=== PATIENT | female | born 1945 | race Caucasian/White ===

== ENCOUNTER → 2016-05-05 | Day surgery (SDC) | payer MEDICARE ==
[~2016-05-05] MED LIST: ALPR0.25 PO; AMLO10 PO; AMLO10TA2 PO; ATOR20TA15 PO; BUPIVACAINE HCL PF 0.5% 10 ML VIAL ONE; BUPIVACAINE/EPINEPHRINE 0.5% PF 10 ML VIAL ONE; CHOL1CAP14 PO; CHOL1CAP6; CLINDAMYCIN PHOS 900 MG/6 ML VIAL ONE; GEMF600T PO; GLIM2TAB PO; GLUCTAB PO; GLYB1TAB51 PO; HEPARIN SODIUM - IV 10,000 UNITS/10 ML VIAL ONE; ISOSULFAN BLUE 50 MG/5 ML VIAL SQ ONE; KETOROLAC TROMETHAMINE 30 MG/ML (IVP) VIAL IV PUSH ONE; LACTATED RINGER'S 1000 ML INJ 1,000 ML ONE; LISI-363 PO; LISI-515 PO; METF850T PO; MIDAZOLAM HCL 2 MG/2 ML VIAL ONE; MORPHINE SULFATE 4 MG/ML INJ ONE; NOVOLOGMXP SQ; NS 100 ML (PAB BAG) 100 ML IV ONE; ONDANSETRON HCL 4 MG/2 ML VIAL IV PUSH ONE; PROMETHAZINE INJ 25 MG/ML VIAL ONE; PROPOFOL 100 MG/10 ML INJ IV ONE; SODIUM CHLORIDE 0.9% 20 ML VIAL ONE; VITA10003 PO; VITA100064 PO; oxyCODONE/ACETAMINOPHEN 5 MG/325 MG TAB ONE
--- NOTE | 2016-05-05 16:57 | TN ---
cc: SASHA CAMEJO DATE OF SURGERY 05/05/2016 PRINCIPAL DIAGNOSIS Clinical stage I right breast cancer. PROCEDURE PERFORMED Right breast lumpectomy with oncoplastic reconstruction, right axillary sentinel lymph node biopsy, and left subclavian Qayzgx-C-Pamx placement. SURGEON Sasha Camejo MD ANESTHESIA General via LMA device. INDICATION The patient is a 70-year-old female who presented with a 1.5 cm palpable mass in the 12 o'clock location of the right breast. 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 She now presents for definitive surgical therapy and medical oncology has recommended port placement to facilitate adjuvant chemotherapy. FINDINGS AT SURGERY A large central right breast mass was identified extending from 12 o'clock down to 6 o'clock. It did not appear to involve the overlying central skin but was quite close at the inferior margin requiring excision of some skin near the inframammary crease. Normal left subclavian anatomy was identified. Two sentinel lymph nodes were noted. #1 was 1+ blue with a count of 1443 and #2 had a count of 80 and was not blue. Touch prep was not performed. PROCEDURE PERFORMED After informed consent was obtained and site verification was performed, the patient was brought to the radiology suite where she underwent ghislaine tumor radionuclide injection. She was then brought to the major operating room where she underwent general anesthesia via LMA device. 4 mL of half-strength Lymphazurin were injected in the subareolar right breast and a 5-minute massage was performed. She was given a single dose of IV Clindamycin and sequential compression hose were placed and the left and right chest and right arm were prepped and draped in sterile fashion. She was placed in the Trendelenburg position and the left subclavian vein was identified with some difficulty via percutaneous cannulation. A J-wire was advanced into the central circulation where its position was confirmed with fluoroscopy. Sharp dissection was then performed around the wire until a subcutaneous pocket for the reservoir had been created and the wire had been dissected down to the level of the pectoralis muscle. The catheter was measured out at 30 cm and cut off. A peel-away sheath and introducer were then advanced over the wire into the central circulation. The introducer and wire were then removed and the catheter advanced easily into the central circulation and the peel-away sheath was removed. Fluoroscopy demonstrated good position of the catheter tip at 20 cm and it was cut off at that point and secured to the reservoir. The catheter was noted to flush and aspirate easily. The reservoir was then secured to the subcutaneous tissue using interrupted 2-0 Prolene sutures. It should be noted that the distance between the skin and chest wall was approximately 4 cm and the reservoir was placed above the chest wall in the subcutaneous tissue in order to facilitate percutaneous access. Good hemostasis was noted and the wound was closed using interrupted 3-0 Vicryl subcutaneous sutures and a 4-0 Monocryl subcuticular suture. Steri-Strips and sterile dressings were then applied. The patient was then placed in the supine position and the skin at the inferior margin of the right axillary hairline was then anesthetized with 0.5% Marcaine plain and incised sharply. Sharp and electrocautery dissection were then performed until the level I axilla and clavipectoral fascia were identified. The clavipectoral fascia was divided and the level I axilla was entered. There were no obvious palpable nodes although there was a small node just above the latissimus tendon which was circumferentially dissected free from surrounding structures using the harmonic scalpel. This lymph node had a count of 80 and was not blue. Very close to the chest wall, there was a smaller node which had blue Lymphazurin uptake and this was circumferentially dissected free from surrounding structures using the harmonic scalpel. This lymph node had a count of 1443 and was 1+ blue. Good hemostasis was noted and the axillary wound was closed using interrupted 3-0 Vicryl subcutaneous sutures and 4-0 Monocryl subcuticular suture. Attention was then turned to the right breast where a central mass was identified. A 12 o'clock periareolar incision was anesthetized and incised sharply. Sharp and electrocautery dissection was then performed circumferentially around the mass until it had been mobilized completely into the wound. The inferior margin of the mass was close to the inframammary crease and some of the skin at that level was sacrificed in order to obtain in good inferior margin. The mass was oriented with one short suture anteriorly, two sutures superiorly, and one long suture laterally. Because the mass did appear close to the anterior margin, this was sharply re-excised with a stitch on the new margin and this was sent as a separate permanent specimen. The inferior margin was also re-excised using electrocautery and this was sent as a separate permanent specimen. Hemostasis was easily obtained with electrocautery and oncoplastic reconstruction was then performed by mobilizing the breast tissue at the level of the subcutaneous fat circumferentially around the defect and the breast tissue was mobilized circumferentially at the level of the pectoralis fascia. It was reapproximated with interrupted 3-0 Vicryl sutures and 3-0 Vicryls were then used to reapproximate the subctaneous tissue. The skin defect at the inframammary crease was also closed using interrupted 3-0 Vicryl subcutaneous sutures and 4-0 Monocryl subcuticular suture. Steri-Strips and sterile dressings were then applied. The patient tolerated the procedure well with an estimated blood loss of 50 mL and she was extubated in the operating room and brought to recovery room in good condition. All sponge and needle counts were correct at the conclusion of the case. MD PETER Hand/ASMITA /4:00 PM /4:40 PM MTDNasreen
== END | disposition home or self-care (01) ==
LOC: ESDC 09:53
PROVIDERS: ATTEND Surgery
DX: C50.911 Malignant neoplasm of unspecified site of right female breast (principal)
CPT/HCPCS: 00400; 00532; 01610; 19303; 36561; 38525; 38792; 76000; 88305; 88307; C1788; J1644; J1885; J2250; J2270; J2405; J2550; J3010; J7120; Q9968

== ENCOUNTER → 2016-06-04 | Day surgery (SDC) | payer MEDICARE ==
[~2016-06-04] VITALS: Ht 160 cm; Wt 89.9 kg
[~2016-06-04] MED LIST changes: +*morphine SULFATE 8 MG/ML PERIprocedure ONLY ONE; +APREPITANT 40 MG CAP ONE; -BUPIVACAINE HCL PF 0.5% 10 ML VIAL ONE; -BUPIVACAINE/EPINEPHRINE 0.5% PF 10 ML VIAL ONE; +BUPIVACAINE/EPINEPHRINE 0.5% PF 30 ML VIAL ONE; +CHLORHEXIDINE GLUCONATE 2 % 1 PACK (2 CLOTHS) TOPICAL PRN; +CLINDAMYCIN 900/NS 100 ML IV SCH; -CLINDAMYCIN PHOS 900 MG/6 ML VIAL ONE; +GENTAMICIN SULFATE 80 MG/2 ML VIAL ONE; -HEPARIN SODIUM - IV 10,000 UNITS/10 ML VIAL ONE; +INSULIN HUMAN REGULAR 1,000 UNITS/10 ML VIAL SQ PRN; -ISOSULFAN BLUE 50 MG/5 ML VIAL SQ ONE; -KETOROLAC TROMETHAMINE 30 MG/ML (IVP) VIAL IV PUSH ONE; +KETOROLAC TROMETHAMINE 30 MG/ML (IVP) VIAL ONE; -LACTATED RINGER'S 1000 ML INJ 1,000 ML ONE; +LACTATED RINGER'S 1000 ML IV PRN; +METOPROLOL TARTRATE 25 MG TAB PO PRN; -MIDAZOLAM HCL 2 MG/2 ML VIAL ONE; -MORPHINE SULFATE 4 MG/ML INJ ONE; -NS 100 ML (PAB BAG) 100 ML IV ONE; +ONDANSETRON HCL 4 MG/2 ML VIAL IV PUSH SCH; +POVIDONE IODINE 5% (ANTISEPSIS KIT) 4 APPLICATIONS EACH NARE PRN; -PROMETHAZINE INJ 25 MG/ML VIAL ONE; -PROPOFOL 100 MG/10 ML INJ IV ONE; +PROPOFOL 200 MG/20 ML AMP IV ONE; +SODIUM CHLORID 0.9% 500 ML IV PRN; -SODIUM CHLORIDE 0.9% 20 ML VIAL ONE; +SODIUM CHLORIDE 0.9% INJ 100 ML ONE; +ePHEDrine/NS 25 MG/5 ML SYR IV ONE; +fentaNYL CITRATE 250 MCG/5 ML AMP ONE; -oxyCODONE/ACETAMINOPHEN 5 MG/325 MG TAB ONE
[2016-06-04 08:22] VITALS: BP 160/76; PULSE 104; RESP 18; TEMP 98.3; O2SAT 98
[2016-06-04 08:38] LABS: AUTOMATED NEUTROPHIL # 3.7 TH/MM3 (1.8-7.7); BASOPHIL # 0.1 TH/MM3 (0-0.2); BASOPHIL % 0.9 % (0.0-2.0); EOSINOPHIL # 0.3 TH/MM3 (0-0.4); EOSINOPHIL % 4.1 % (0.0-4.0); HEMATOCRIT 31.1 % (35.0-46.0); HEMO FLAGS DIFF FINAL; LYMPHOCYTE # 1.9 TH/MM3 (1.0-4.8); MEAN CELL VOLUME 86.6 FL (80.0-100.0); MEAN CORPUSCULAR HEMOGLOBIN 29.8 PG (27.0-34.0); MEAN CORPUSCULAR HGB CONC 34.5 % (32.0-36.0); MONO % 9.8 % (0.0-8.0); NEUT % 56.2 % (16.0-70.0); PLATELET COUNT 210 TH/MM3 (150-450); RED BLOOD COUNT 3.59 MIL/MM3 (4.00-5.30); RED CELL DISTRIBUTION WIDTH 15.5 % (11.6-17.2); WHITE BLOOD COUNT 6.7 TH/MM3 (4.0-11.0)
[2016-06-04 12:20] VITALS: BP 142/74; PULSE 92; RESP 20; TEMP 98; O2SAT 94
--- NOTE | 2016-06-07 09:42 | MP ---
cc: SASHA CAMEJO M.D. DATA OF DICTATION 06/04/2016 DATE OF SURGERY 06/04/2016 PRINCIPAL DIAGNOSIS Infected right breast seroma status post lumpectomy. POSTOPERATIVE DIAGNOSIS Infected right breast seroma status post lumpectomy. PROCEDURE PERFORMED Incision and drainage of infected right breast seroma. ATTENDING PHYSICIAN Sasha Camejo MD HISTORY OF PRESENT ILLNESS The patient is a 70-year-old morbidly obese diabetic who had a poorly differentiated metaplastic breast cancer requiring lumpectomy and sentinel lymph node biopsy on April 30. Final tumor size was 6.5 cm and she is scheduled to begin adjuvant chemotherapy. Approximately 2-1/2 weeks postoperatively, she developed sudden onset of purulent drainage from the lateral aspect of her lumpectomy wound which has been managed with oral antibiotics and wound packing. However, she continues to have copious drainage and pain and operative drainage was recommended. FINDINGS AT THE TIME OF SURGERY Mild fat necrosis with purulent fluid was identified. PROCEDURE PERFORMED After informed consent was obtained and site verification was performed, the patient was brought to the major operating room where she underwent IV sedation. She was given a single dose of IV clindamycin and sequential compression hose were placed. The right breast was prepped and draped in sterile fashion. The periareolar incision was anesthetized with 0.5% Marcaine and incised sharply. The lumpectomy cavity was immediately identified and approximately 100 cc of purulent drainage was evacuated. Copious irrigation and suctioning as well as mechanical debridement of the wound base was performed. There was mild fat necrosis, but no evidence of a deep space infection. The wound was repacked and closed using interrupted 3-0 Vicryl subcutaneous sutures and interrupted 3-0 nylon horizontal mattress sutures. The patient tolerated the procedure well and was brought to the recovery room in good condition. All sponge and needle counts were correct at the conclusion of the case. MD PETER Hand/LUKE /10:39 AM /9:37 AM
== END | disposition home or self-care (01) ==
LOC: HSDC 07:29
PROVIDERS: ATTEND Surgery
DX: L76.34 Postprocedural seroma of skin and subcutaneous tissue following other procedure (principal); C50.911 Malignant neoplasm of unspecified site of right female breast; E11.9 Type 2 diabetes mellitus without complications; E66.01 Morbid (severe) obesity due to excess calories; Z68.35 Body mass index [BMI] 35.0-35.9, adult
CPT/HCPCS: 00400; 10140; 85025; J1885; J2270; J2405; J3010; J7120; J8501; J1580

== ENCOUNTER 2016-08-05 12:52 | Day surgery (SDC) | payer MEDICARE ==
[~2016-08-05 12:52] MED LIST changes: -*morphine SULFATE 8 MG/ML PERIprocedure ONLY ONE; -ALPR0.25 PO; -AMLO10 PO; -APREPITANT 40 MG CAP ONE; -BUPIVACAINE/EPINEPHRINE 0.5% PF 30 ML VIAL ONE; -CHLORHEXIDINE GLUCONATE 2 % 1 PACK (2 CLOTHS) TOPICAL PRN; -CHOL1CAP14 PO; -CHOL1CAP6; -CLINDAMYCIN 900/NS 100 ML IV SCH; -GENTAMICIN SULFATE 80 MG/2 ML VIAL ONE; -GLUCTAB PO; -GLYB1TAB51 PO; -INSULIN HUMAN REGULAR 1,000 UNITS/10 ML VIAL SQ PRN; -KETOROLAC TROMETHAMINE 30 MG/ML (IVP) VIAL ONE; -LACTATED RINGER'S 1000 ML IV PRN; -LISI-363 PO; -METOPROLOL TARTRATE 25 MG TAB PO PRN; -NOVOLOGMXP SQ; -ONDANSETRON HCL 4 MG/2 ML VIAL IV PUSH ONE; -ONDANSETRON HCL 4 MG/2 ML VIAL IV PUSH SCH; -POVIDONE IODINE 5% (ANTISEPSIS KIT) 4 APPLICATIONS EACH NARE PRN; -PROPOFOL 200 MG/20 ML AMP IV ONE; -SODIUM CHLORID 0.9% 500 ML IV PRN; -SODIUM CHLORIDE 0.9% INJ 100 ML ONE; -VITA100064 PO; -ePHEDrine/NS 25 MG/5 ML SYR IV ONE; -fentaNYL CITRATE 250 MCG/5 ML AMP ONE
[2016-08-05 13:19] VITALS: BP 203/90; PULSE 113; RESP 20; TEMP 98.4; O2SAT 96
[2016-08-05] MEDS ORDERED: CHOL1CAP14 PO (13:53)
[2016-08-05] MEDS ORDERED: ALPR0.25 PO (13:54)
--- NOTE | 2016-08-05 14:37 | PD.RAD ---
Post Procedure Progress Note Pre Procedure Diagnosis: (1) Port catheter in place Post Procedure Diagnosis: (1) Port catheter in place Procedure Date: Aug 05, 2016 Supervising Radiologist: Duane Lira Proceduralist/Assist: RT Tiffani(R) Anesthesia: Other Plan of Activity Patient to Unit: ROPU Patient Condition: Good See PACS Report for procedural detail/treatment Duane Lira MD Aug 05, 2016 14:37
--- NOTE | 2016-08-05 16:01 | RADRPT ---
EXAM DATE/TIME: 08/05/2016 14:14 [facility] COMPARISON: No previous studies available for comparison. INDICATIONS : Patient presents with breast cancer in need of port evaluation due to non functioning port. MEDICAL HISTORY : HTN GERD DM R breast cancer Arthritis Hypercholesterolemia SURGICAL HISTORY : Cataract sx L port placement Right breast lumpectomy Colonascopy ENCOUNTER: Initial ACUITY: 3 months PAIN SCORE: 0/10 LOCATION: N/A FLUORO TIME: 0.1 minutes IMAGE SERIES: 0 TECH NOTE: Port patency evaluation was unsuccessful due to port access being clogged off.SHO CHAUDHARI MR#:[id number] Exam Dt/Desc: August 05, 2016CENT COMPA ACCESS DEV PAT W/SVC PROCEDURE : 1. fluoroscopic evaluation and attempted injection of port The risks, benefits and alternatives to the procedure were explained and verbal and written consent w as obtained. The patient was placed supine. The port was prepped in sterile fashion. Full sterile t echnique was used, including cap, mask, sterile gloves and gown, and a large sterile sheet. Hand hyg iene and 2% chlorhexidine prep was utilized per protocol for cutaneous antisepsis with appropriate dr y time for site. Fluoroscopic evaluation of the chest demonstrates a left subclavian port with redundant tubing in the chest wall and catheter tip in the central brachiocephalic vein. Despite multiple attempts with vary ing syringes and multiple manipulations, the port could not be flushed or aspirated. CONCLUSION: 1. Left subclavian [id number]-c-[id number] catheter tip in the central left brachiocephalic vein. The port appe ars to be completely occluded with multiple failed attempts at clearance. Findings were personally discussed with Dr. Mary at the conclusion of the procedure. Plan is to e xplant the existing port and place a new internal jugular port. Duane Lira MD on August 05, 2016 at 15:56 Board Certified Radiologist. This report was verified electronically.
== END 2016-08-05 15:30 | disposition home or self-care (01) ==
LOC: HROP 12:52 → HRIP 12:53 → HROP 15:30
PROVIDERS: ATTEND Internal Medicine Hematology & Oncology
DX: T82.898A Other specified complication of vascular prosthetic devices, implants and grafts, initial encounter (principal); C50.911 Malignant neoplasm of unspecified site of right female breast; I10 Essential (primary) hypertension; K21.9 Gastro-esophageal reflux disease without esophagitis; E11.9 Type 2 diabetes mellitus without complications; M19.90 Unspecified osteoarthritis, unspecified site; E78.00 Pure hypercholesterolemia, unspecified; Y83.1 Surgical operation with implant of artificial internal device as the cause of abnormal reaction of the patient, or of later complication, without mention of misadventure at the time of the procedure; Z88.0 Allergy status to penicillin; Z88.2 Allergy status to sulfonamides; Z88.5 Allergy status to narcotic agent

== ENCOUNTER 2016-08-09 06:18 | Day surgery (SDC) | payer MEDICARE ==
[~2016-08-09] VITALS: Ht 154.9 cm; Wt 89.1 kg
[~2016-08-09 06:18] MED LIST changes: +ALPR0.25 PO; +CHOL1CAP14 PO
[2016-08-09 06:47] VITALS: BP 195/91; PULSE 103; RESP 20; TEMP 98.3; O2SAT 96
[2016-08-09] MEDS ORDERED: VANCOMYCIN 1000 MG/NS 250 ML - implanted port/tunneled catheter IV SCH ×2 (07:00)
[2016-08-09] MEDS ORDERED: POVIDONE IODINE 5% (ANTISEPSIS KIT) 4 APPLICATIONS EACH NARE SCH (07:00)
[2016-08-09] MEDS ORDERED: SODIUM CHLORIDE 0.9% 1000 ML IV SCH (07:00)
[2016-08-09] MEDS ORDERED: CHLORHEXIDINE GLUCONATE 2 % 1 PACK (2 CLOTHS) TOPICAL SCH (07:00)
[2016-08-09 07:49] LABS: HEMATOCRIT 27.3 % (35.0-46.0); MEAN CELL VOLUME 87.8 FL (80.0-100.0); MEAN CORPUSCULAR HGB CONC 35.3 % (32.0-36.0); PLATELET COUNT 172 TH/MM3 (150-450); RED BLOOD COUNT 3.11 MIL/MM3 (4.00-5.30)
[2016-08-09 07:50] LABS: HEMO FLAGS AUTO DIFF
[2016-08-09 08:05] LABS: APTT (PATIENT) 25.2 SEC (24.3-30.1); PROTHROMBIN TIME - PATIENT 11.4 SEC (9.8-11.6)
[2016-08-09] MEDS ORDERED: fentaNYL CITRATE 250 MCG/5 ML AMP ONE ×2 (08:11→09:08)
[2016-08-09] MEDS ORDERED: MIDAZOLAM HCL 5 MG/5 ML VIAL ONE ×2 (08:11→09:08)
[2016-08-09] MEDS ORDERED: LIDOCAINE 1%/EPINEPHrine 1:100,000 SOLN 30 ML VIAL ONE (08:20)
[2016-08-09 08:42] LABS: BASOPHILS 2 % (0-2); EOSINOPHILS 2 % (0-4); POLYS (SEG NEUTROPHILS) 11 % (16-70); WBC DIFF SAMPLE 100
[2016-08-09 08:44] LABS: NEUTROPHIL # MANUAL DIFF 0.1 TH/MM3 (1.8-7.7)
[2016-08-09 08:45] LABS: OVALOCYTES 1+ (NORMAL)
[2016-08-09 08:48] LABS: PLATELET ESTIMATE SMEAR NORMAL (NORMAL); PLATELET MORPHOLOGY ENLARGED (NORMAL); POLYCHROMASIA 2.3 % (0.0-1.9)
[2016-08-09 08:49] LABS: SCAN/DIFF FINAL DIFF MANUAL
[2016-08-09 09:50] VITALS: BP 187/80; PULSE 98; RESP 18; TEMP 98.2; O2SAT 92
[2016-08-09 10:05] VITALS: BP 184/82; PULSE 95; RESP 17; O2SAT 95
--- NOTE | 2016-08-09 10:07 | PD.RAD ---
Post Procedure Progress Note Pre Procedure Diagnosis: (1) Port catheter in place (2) Breast CA Post Procedure Diagnosis: (1) Port catheter in place (2) Breast CA Procedure Date: Aug 09, 2016 Supervising Radiologist: Duane Lira Proceduralist/Assist: Aylin De Paz, RT(R)(CV), Bee Tony RT(R) Estimated blood loss: <5 ml Anesthesia: Conscious Sedation Plan of Activity Patient to Unit: ROPU Patient Condition: Good Additional Comments: Removed left subclavian nonfunctioning port. Placed new IJ port. See PACS Report for procedural detail/treatment Duane Lira MD Aug 09, 2016 10:07
[2016-08-09] MEDS ORDERED: SODIUM CHLORIDE 0.9% FLUSH 10 ML FLUSH IVF PRN (10:15)
--- NOTE | 2016-08-09 10:19 | RADRPT ---
EXAM DATE/TIME: 08/09/2016 08:35 [facility] COMPARISON: No previous studies available for comparison. INDICATIONS : Patient with history of right breast cancer in need of Bbrzh-i-Rnqa removal and replacement. MEDICAL HISTORY : HTN, HLD, Anemia, GERD, Osteoarthritis, Diabetes, Mastitis, Chemotherapy SURGICAL HISTORY : Right breast mass biopsy, Right breast lumpectomy and sentinel lymph node sampling, Port placement, C olonoscopy ENCOUNTER: Subsequent ACUITY: 4-6 months PAIN SCORE: 0/10 FLUORO TIME: 1 minutes IMAGE SERIES: 0 SEDATION TIME: 45 minutes ACCESS: Left internal jugular vein SEDATION: 1.) 6 mg midazolam (Versed) IV 2.) 300 mcg fentanyl (Sublimaze) IV Prophylactic antibiotics were administered with appropriate pre-procedure timing. Vancomycin within 2 hours of procedure, Ancef (or alternative) within 1 hour of procedure. DEVICE: 1. 8 single lumen Bard Vaccess Port PROCEDURE : 1. Removal of surgically placed left subclavian Jsptee-j-Xjuk 2. Conscious sedation with continuous EKG and Oximetry monitoring. 3. Ultrasound of vascular access 4. Fluoroscopic guidance 5. Placement of new left internal jugular Vaccess Sfeaji-d-Bsfv The risks, benefits and alternatives to the procedure were explained and verbal and written consent w as obtained. The site was prepped in sterile fashion. Full sterile technique was used, including ca p, mask, sterile gloves and gown and a large sterile sheet. Hand hygiene and 2% chlorhexidine prep w as utilized per protocol for cutaneous antisepsis with appropriate dry time for site. The skin and s ubcutaneous tissues were infiltrated with local anesthetic solution. Small incision was made overlying the prior left subclavian port pocket. The pocket was then bluntly dissected and the existing port and attached tubing were removed. Both were inspected and noted to be intact. The pocket was then irrigated with copious saline. Slightly more superficial region along th e same pocket was then bluntly dissected away. The deep tissues of the prior pocket were closed with 3-0 suture. Ultrasound examination of the left internal jugular vein demonstrated the vein to be open . Single image was obtained and placed PACS archive. Micropuncture needle was advanced into the left internal jugular vein under direct ultrasound guidance. This was subtotally exchanged for a 3-4 dilat or. Inner dilator was then removed and the wire was advanced into the IVC under fluoroscopic guidance . A Bard Vaccess port was then sutured into the pocket with 2-0 Prolene suture. Attached tubing was t hen tunneled from the port pocket to be the venotomy site. Catheter was then advanced through a peel- away sheath to just beyond the atriocaval junction and the peel-away sheath was then removed. Port de monstrated appropriate function and was therefore locked with appropriate volume and strength of hepa rinized solution. The port incision was subsequently closed with 3-0 and 4-0 suture and Dermabond. Conscious sedation was performed with the prescribed dosages and duration as above in the presence of an independent trained radiology nurse to assist in the monitoring of the patient. EKG and oximetry remained stable throughout the procedure. CONCLUSION: 1. Technically successful removal of nonfunctioning left subclavian [id number]-g-Ucrk. 2. Technically successful placement of a new left intrajugular port, as above. Duane Lira MD on August 09, 2016 at 10:08 Board Certified Radiologist. This report was verified electronically.
[2016-08-09 10:35] VITALS: BP 158/78; PULSE 90; RESP 18; O2SAT 94
[2016-08-09 11:05] VITALS: BP 190/88; PULSE 85; RESP 19; O2SAT 92
[2016-08-09] MEDS ORDERED: ONDANSETRON HCL 4 MG/2 ML VIAL ONE (11:28)
[2016-08-09 12:00] VITALS: BP 151/78; PULSE 89; RESP 18; O2SAT 92
== END 2016-08-09 12:15 | disposition home or self-care (01) ==
LOC: HRIP 06:18 → HROP 06:18
PROVIDERS: ATTEND Internal Medicine Hematology & Oncology
DX: T82.598A Other mechanical complication of other cardiac and vascular devices and implants, initial encounter (principal); C50.919 Malignant neoplasm of unspecified site of unspecified female breast; I10 Essential (primary) hypertension; E78.5 Hyperlipidemia, unspecified; E11.9 Type 2 diabetes mellitus without complications; K21.9 Gastro-esophageal reflux disease without esophagitis; M19.90 Unspecified osteoarthritis, unspecified site; Y83.1 Surgical operation with implant of artificial internal device as the cause of abnormal reaction of the patient, or of later complication, without mention of misadventure at the time of the procedure
CPT/HCPCS: 36561; 36590; 85007; 85027; 85610; 85730; C1788; J1642; J2250; J2405; J3010; J3370; J7030; J7050; 36582; 76937; 77001; 99152; 99153

== ENCOUNTER 2016-08-29 15:51 | Inpatient (IN) | payer MEDICARE ==
[~2016-08-29] VITALS: Ht 157.5 cm; Wt 86.2 kg
[~2016-08-29 15:51] MED LIST changes: -VITA10003 PO
[2016-08-29 15:53] VITALS: BP 183/80; PULSE 132; RESP 20; TEMP 98.8; O2SAT 97
[2016-08-29 16:29] VITALS: BP 137/65; PULSE 111; PULSE 98; RESP 17; O2SAT 97
[2016-08-29 17:22] LABS: BASOPHIL % 2.3 % (0.0-2.0); EOSINOPHIL % 0.5 % (0.0-4.0); HEMATOCRIT 30.3 % (35.0-46.0); LYMPH % 29.5 % (9.0-44.0); LYMPHOCYTE # 0.3 TH/MM3 (1.0-4.8); MEAN CORPUSCULAR HEMOGLOBIN 30.3 PG (27.0-34.0); MEAN CORPUSCULAR HGB CONC 34.8 % (32.0-36.0); MONO % 31.4 % (0.0-8.0); NEUT % 36.3 % (16.0-70.0); PLATELET COUNT 183 TH/MM3 (150-450); RED BLOOD COUNT 3.49 MIL/MM3 (4.00-5.30); RED CELL DISTRIBUTION WIDTH 15.6 % (11.6-17.2)
[2016-08-29 17:27] LABS: HEMO FLAGS AUTO DIFF
[2016-08-29 17:32] LABS: AUTOMATED NEUTROPHIL # 0.4 TH/MM3 (1.8-7.7)
[2016-08-29 17:35] LABS: ANION GAP 11 MEQ/L (5-15); AST (GOT) 21 U/L (15-37); BICARBONATE 20.5 MEQ/L (21.0-32.0); BLOOD UREA NITROGEN 20 MG/DL (7-18); CHLORIDE 106 MEQ/L (98-107); GLOMERULAR FILTRATION RATE 68 ML/MIN (>89); POTASSIUM 3.9 MEQ/L (3.5-5.1); SODIUM (NA) 137 MEQ/L (136-145)
[2016-08-29 17:36] LABS: ALT (GPT) 32 U/L (10-53)
[2016-08-29 17:39] LABS: ALKALINE PHOSPHATASE 108 U/L (45-117); TOTAL BILIRUBIN ADULT 0.7 MG/DL (0.2-1.0)
[2016-08-29 17:46] LABS: CREATINE KINASE 38 U/L (26-192)
[2016-08-29 17:59] LABS: PLATELET ESTIMATE SMEAR NORMAL (NORMAL); PLATELET MORPHOLOGY NORMAL (NORMAL); SCAN/DIFF AUTO DIFF CONFIRMED
--- NOTE | 2016-08-29 18:27 | PD ---
HPI Chief Complaint: Pain: Acute or Chronic Time Seen by Provider: 16:16 Travel History International Travel<30 days: No Contact w/Intl Traveler<30days: No Traveled to known affect area: No History of Present Illness HPI This is a 71-year-old female who has a history of stage IIB breast cancer who presents to the emergency department having received chemotherapy on Tuesday and reporting weakness. She says that ever since she received chemotherapy she hasn't been able to walk. She's been very weak and she hasn't been able to move her legs much and she can't even get out of bed without help, constant, severe. She lives alone. She says she has been tolerating this chemotherapy very well. She already had a complication having to be treated for mastitis in the setting of chemotherapy. She follows with Dr. Benavides. She denies any back pain. She has had some tingling in her hands on both sides. She denies any fevers or chills. PFSH Past Medical History Arthritis: Yes Cancer: Yes (RIGHT BREAST W/ CHEMO) Cardiovascular Problems: Yes High Cholesterol: Yes Chemotherapy: Yes Diabetes: Yes Patient Takes Glucophage: Yes Endocrine: Yes Gastrointestinal Disorders: Yes (GERD) Genitourinary: No Hepatitis: No Hiatal Hernia: No Hypertension: Yes Immune Disorder: No Medical other: Yes (VIT D DEFICIENCY, CELLULITIS) Musculoskeletal: Yes (OSTEOPENIA, OA) Neurologic: No Psychiatric: Yes (ANXIETY) Reproductive: No Respiratory: Yes (URI) Immunizations Current: Yes Thyroid Disease: No Past Surgical History Abdominal Surgery: Yes (CHOLY) AICD: No Body Medical Devices: PORT LEFT CHEST Cardiac Surgery: No Cholecystectomy: Yes Ear Surgery: No Endocrine Surgery: No Eye Surgery: Yes (L CATARACT) Genitourinary Surgery: No Gynecologic Surgery: No Joint Replacement: No Oral Surgery: Yes (T&A) Pacemaker: No Thoracic Surgery: Yes (PORT PLACEMENT twice, R BREAST LUMPECTOMY 05/05/16) Tonsillectomy: Yes (and adenoids) Social History Alcohol Use: No Tobacco Use: No Substance Use: No Allergies-Medications (Allergen,Severity, Reaction): Coded Allergies: Codeine (Verified Allergy, Severe, NAUSEA AND VOMITITNG, 08/29/16) Penicillin (Verified Allergy, Severe, HIVES, PROBLEMS BREATHING, 08/29/16) Sulfa (Verified Allergy, Severe, NAUSEA AND VOMITING, 08/29/16) Reported Meds & Prescriptions Reported Meds & Active Scripts Active Reported Alprazolam 0.25 Mg Tab 0.25 Mg PO Q4H PRN D3 Maximum Strength (Cholecalciferol) 5,000 Unit Cap Units PO EVERY OTHER DAY Metformin (Metformin HCl) 850 Mg Tab 850 Mg PO BIDPC With meals Lisinopril 20 Mg Tab 20 Mg PO DAILY Glimepiride 2 Mg Tab 2 Mg PO BIDAC Gemfibrozil 600 Mg Tab 600 Mg PO BIDAC Take 30 minutes prior to breakfast and dinner. Atorvastatin (Atorvastatin Calcium) 20 Mg Tab 20 Mg PO HS Amlodipine (Amlodipine Besylate) 10 Mg Tab 10 Mg PO DAILY Review of Systems Except as stated in HPI: all other systems reviewed are Neg Physical Exam Narrative GENERAL:Well appearing, no acute distress SKIN: Focused skin assessment warm and dry. HEAD: Atraumatic. Normocephalic. EYES: Pupils equal and round. No injection or drainage. ENT: Dry mucous membranes. NECK: Trachea midline. CARDIOVASCULAR: Tachycardic. No murmur appreciated. RESPIRATORY: Clear to auscultation. Breath sounds equal bilaterally. GASTROINTESTINAL: Abdomen soft, non-tender, nondistended. MUSCULOSKELETAL: No obvious deformities. NEUROLOGICAL: Awake and alert. No obvious cranial nerve deficits. 4 out of 5 strength in the left lower extremity, 4+ out of 5 strength in the right lower extremity, no clonus, downward Babinski, weakness appears to affect both proximal and distal muscles. PSYCHIATRIC: Appropriate mood and affect; insight and judgment normal. Data Data Last Documented VS Vital Signs Date Time Temp Pulse Resp B/P Pulse Ox O2 Delivery O2 Flow Rate FiO2 08/29/16 16:29 98 17 137/65 97 Room Air 08/29/16 15:53 98.8 Orders Complete Blood Count With Diff (08/29/16 16:34) Comprehensive Metabolic Panel (08/29/16 16:34) Blood Culture (08/29/16 16:34) Lactic Acid (08/29/16 16:34) Creatine Kinase (Cpk) (08/29/16 16:34) ^ Insert Iv (08/29/16 16:34) Admit Order (Ed Use Only) (08/29/16 18:05) Labs Laboratory Tests Test 08/29/16 16:52 White Blood Count 1.0 TH/MM3 Red Blood Count 3.49 MIL/MM3 Hemoglobin 10.6 GM/DL Hematocrit 30.3 % Mean Corpuscular Volume 87.0 FL Mean Corpuscular Hemoglobin 30.3 PG Mean Corpuscular Hemoglobin 34.8 % Concent Red Cell Distribution Width 15.6 % Platelet Count 183 TH/MM3 Mean Platelet Volume 9.7 FL Neutrophils (%) (Auto) 36.3 % Lymphocytes (%) (Auto) 29.5 % Monocytes (%) (Auto) 31.4 % Eosinophils (%) (Auto) 0.5 % Basophils (%) (Auto) 2.3 % Neutrophils # (Auto) 0.4 TH/MM3 Lymphocytes # (Auto) 0.3 TH/MM3 Monocytes # (Auto) 0.3 TH/MM3 Eosinophils # (Auto) 0.0 TH/MM3 Basophils # (Auto) 0.0 TH/MM3 CBC Comment AUTO DIFF Differential Comment AUTO DIFF CONFIRMED Platelet Estimate NORMAL Platelet Morphology Comment NORMAL Sodium Level 137 MEQ/L Potassium Level 3.9 MEQ/L Chloride Level 106 MEQ/L Carbon Dioxide Level 20.5 MEQ/L Anion Gap 11 MEQ/L Blood Urea Nitrogen 20 MG/DL Creatinine 0.83 MG/DL Estimat Glomerular Filtration 68 ML/MIN Rate Random Glucose 153 MG/DL Lactic Acid Level 1.2 mmol/L Calcium Level 9.6 MG/DL Total Bilirubin 0.7 MG/DL Aspartate Amino Transf 21 U/L (AST/SGOT) Alanine Aminotransferase 32 U/L (ALT/SGPT) Alkaline Phosphatase 108 U/L Total Creatine Kinase 38 U/L Total Protein 7.8 GM/DL Albumin 4.4 GM/DL [facility] Medical Decision Making Medical Screen Exam Complete: Yes Emergency Medical Condition: Yes Medical Record Reviewed: Yes (patient has been receiving Taxotere and Cytoxan with Dr. Benavides) Interpretation(s) Neutropenic Electrolytes are reassuring Lactic acid is 1.2 CK is normal Differential Diagnosis Infection, metastasis, neuropathy, chemotherapy side effect, Eaton-Lambert syndrome Narrative Course This is a 71-year-old female who presents to the emergency department with weakness in her lower extremities which has been going on for about 5 days. She is unable to get out of bed without help. She lives alone. She is subjectively weak on exam. She was placed on a monitor and an IV was established. She was tachycardic. I was cautious with IV hydration given her history of reduced ejection fraction. I spoke to Dr. Escobedo who was telephonic nurse case manager for Dr. Benavides. He agreed that MRI is warranted to evaluate for possible metastases causing the patient's weakness. Plan for MRI of the brain, thoracic and lumbar spine. Patient also will likely require physical therapy evaluation. Physician Communication Physician Communication Discussed with Dr. Escobedo and Dr. Dudley Diagnosis Primary Impression: Weakness Admitting Information Admitting Physician Requests: Admit Jeniffer Jacobo MD Aug 29, 2016 18:27
[2016-08-29] MEDS ORDERED: SODIUM CHLORID 0.9% 500 ML INJ 500 ML IV ONE (18:45)
[2016-08-29 18:50] VITALS: TEMP 100.4
[2016-08-29] MEDS ORDERED: GLUCAGON 1 MG/ML VIAL OTHER PRN (19:00)
[2016-08-29] MEDS ORDERED: DEXTROSE 50% IN WATER 50 ML VIAL(D50) IV PRN (19:00)
[2016-08-29 19:34] LABS: BACTERIA, URINE MOD /hpf; BLOOD, URINE SMALL (NEG); COMMENT (UR) CULTURE INDICATED; CULTURE IF INDICATED CULTURE INDICATED; GLUCOSE,URINE NEG (NEG); KETONE, URINE NEG (NEG); NITRITE,URINE NEG (NEG); PH, URINE 5.5 (5.0-8.5); SQUAMOUS EPITHELIAL CELL URINE 1 /hpf (0-5); TRANSITIONAL EPI CELLS, URINE 1 /hpf; URINE COLOR YELLOW (YELLW/STRAW)
--- NOTE | 2016-08-29 19:53 | HHI.HP ---
HPI Service [facility] Hospitalists Primary Care Physician Praveena Wilks MD Admission Diagnosis weakness Chief Complaint: weak Travel History International Travel<30 Days: No Contact w/Intl Traveler <30 Da: No Traveled to Known Affected Are: No History of Present Illness Pt is 71 yo diagnosed with right breast ca in February. She underwent lumpectomy and l.n. were negative in April. She had a port placed during surgery. She developed an infected seroma of surgical site requiring incision/drainage in May. About 3 weeks ago the port was removed due to nonfunction and IR placed a new port. She underwent her second chemo treatment docetaxel/cyclophosphamide last weak on Tuesday and since this past Tuesday or a week ago..has been very weak. Pt describes being essentially bedridden. She says it has been hard to maneuver her legs to edge of bed and has been unable to walk. she described some chills but no fever at home. diarrhea now x 2 days but no vomiting or problems eating. no abdomen pain and no dysuria. Review of Systems Other chills lower ext weakness inability to ambulate Past Family Social History Past Medical History breast ca right breast lumpectomy infected seroma breast htn right wrist fx's and surgery port placement. x 2 dm htn hyperlipidemia cardiomyopathy 40-45% per records Reported Medications Alprazolam 0.25 Mg Tab 0.25 Mg PO Q4H PRN D3 Maximum Strength (Cholecalciferol) 5,000 Unit Cap Units PO EVERY OTHER DAY Metformin (Metformin HCl) 850 Mg Tab 850 Mg PO BIDPC With meals Lisinopril 20 Mg Tab 20 Mg PO DAILY Glimepiride 2 Mg Tab 2 Mg PO BIDAC Gemfibrozil 600 Mg Tab 600 Mg PO BIDAC Take 30 minutes prior to breakfast and dinner. Atorvastatin (Atorvastatin Calcium) 20 Mg Tab 20 Mg PO HS Amlodipine (Amlodipine Besylate) 10 Mg Tab 10 Mg PO DAILY Allergies: Coded Allergies: Codeine (Verified Allergy, Severe, NAUSEA AND VOMITITNG, 08/29/16) Penicillin (Verified Allergy, Severe, HIVES, PROBLEMS BREATHING, 08/29/16) Sulfa (Verified Allergy, Severe, NAUSEA AND VOMITING, 08/29/16) Family History nc Social History no etoh/tob Physical Exam Vital Signs nad heart reg lung cta abd s/nt/nabs ext no edema lying in bed...able to dorsi/plantarflex at ankle, hip and knee flexion/extention intact no clonus. no tenderness over lumbar spine. no redness or tenderness over left chest port Vital Signs Date Time Temp Pulse Resp B/P Pulse Ox O2 Delivery O2 Flow Rate FiO2 08/29/16 18:50 100.4 08/29/16 16:29 98 17 137/65 97 Room Air 08/29/16 15:53 98.8 132 20 183/80 97 Room Air Laboratory Laboratory Tests Test 08/29/16 08/29/16 16:52 18:50 White Blood Count 1.0 Red Blood Count 3.49 Hemoglobin 10.6 Hematocrit 30.3 Mean Corpuscular Volume 87.0 Mean Corpuscular Hemoglobin 30.3 Mean Corpuscular Hemoglobin 34.8 Concent Red Cell Distribution Width 15.6 Platelet Count 183 Mean Platelet Volume 9.7 Neutrophils (%) (Auto) 36.3 Lymphocytes (%) (Auto) 29.5 Monocytes (%) (Auto) 31.4 Eosinophils (%) (Auto) 0.5 Basophils (%) (Auto) 2.3 Neutrophils # (Auto) 0.4 Lymphocytes # (Auto) 0.3 Monocytes # (Auto) 0.3 Eosinophils # (Auto) 0.0 Basophils # (Auto) 0.0 CBC Comment AUTO DIFF Differential Comment AUTO DIFF CONFIRMED Platelet Estimate NORMAL Platelet Morphology Comment NORMAL Sodium Level 137 Potassium Level 3.9 Chloride Level 106 Carbon Dioxide Level 20.5 Anion Gap 11 Blood Urea Nitrogen 20 Creatinine 0.83 Estimat Glomerular Filtration 68 Rate Random Glucose 153 Lactic Acid Level 1.2 Calcium Level 9.6 Total Bilirubin 0.7 Aspartate Amino Transf 21 (AST/SGOT) Alanine Aminotransferase 32 (ALT/SGPT) Alkaline Phosphatase 108 Total Creatine Kinase 38 Total Protein 7.8 Albumin 4.4 Urine Color YELLOW Urine Turbidity HAZY Urine pH 5.5 Urine Specific [place] 1.009 Urine Protein 30 Urine Glucose (UA) NEG Urine Ketones NEG Urine Occult Blood SMALL Urine Nitrite NEG Urine Bilirubin NEG Urine Urobilinogen LESS THAN 2.0 Urine Leukocyte Esterase LARGE Urine RBC 5 Urine WBC Urine Squamous Epithelial 1 Cells Urine Transitional Epithelial 1 Cells Urine Amorphous Sediment RARE Urine Bacteria MOD Microscopic Urinalysis Comment CULTURE INDICATED Date/Time Procedure Status Source Growth 08/29/16 18:50 Urine Culture Received Urine Clean Catch Pending 08/29/16 16:50 Aerobic Blood Culture Received Blood Peripheral Pending 08/29/16 16:50 Anaerobic Blood Culture Received Blood Peripheral Pending Result Diagram: 08/29/16 1652 08/29/16 165 Assessment and Plan Problem List: (1) Unable to ambulate Status: Acute Plan: Pt is 71 yo diagnosed with right breast ca in February. She underwent lumpectomy and l.n. were negative in April. She had a port placed during surgery. She developed an infected seroma of surgical site requiring incision/drainage in May. About 3 weeks ago the port was removed due to nonfunction and IR placed a new port. She underwent her second chemo treatment docetaxel/cyclophosphamide last week on Tuesday and since this past Tuesday or a week ago..has been very weak. Pt describes being essentially bedridden. She says it has been hard to maneuver her legs to edge of bed and has been unable to walk. she described some chills but no fever at home. diarrhea now x 2 days but no vomiting or problems eating. no abdomen pain and no dysuria. - blood and urine cx taken to eval for infectious cause of her sx's -send stool studies. -neutropenia noted with fever. pcn allergy. will cover with abx tonight and consult oncology. -ED spoke with oncology who was considering mri eval of spine. - dvt prophylaxis - PT eval. - resume home meds as tolerated (2) Breast CA Status: Acute Plan: see above (3) Neutropenic fever Status: Acute Plan: see above (4) DM (diabetes mellitus) Status: Chronic Plan: see above (5) HTN (hypertension) Status: Chronic Plan: see above (6) Cardiomyopathy Status: Chronic Plan: EF 40-45% per onc records. Physician Certification 2 Midnight Certification Type: Admission for Inpatient Services Order for Inpatient Services 3The services are ordered in accordance with Medicare regulations or non- Medicare payer requirements, as applicable. In the case of services not specified as inpatient-only, they are appropriately provided as inpatient services in accordance with the 2-midnight benchmark. Estimated LOS (days): 3 3 days is the estimated time the patient will need to remain in the hospital, assuming treatment plan goals are met and no additional complications. Post-Hospital Plan: Home Jonathan Dudley MD Aug 29, 2016 19:53
[2016-08-29 21:00] VITALS: BP 147/64; PULSE 106; RESP 21; TEMP 99.5; O2SAT 94
[2016-08-29] MEDS ORDERED: ONDANSETRON HCL 4 MG/2 ML VIAL IV PUSH PRN (21:00)
[2016-08-29] MEDS ORDERED: ALPRAZolam 0.25 MG TAB PO PRN (21:00)
[2016-08-29] MEDS ORDERED: VANCOMYCIN INJ 1,000 MG in SODIUM CHLOR 0.9% 250 ML INJ 250 ML IV ONE (21:00)
[2016-08-29] MEDS ORDERED: LEVOFLOXACIN 500 MG PREMIX INJ 100 ML IV ONE (21:00)
[2016-08-29] MEDS: INSULIN ASPART SUPPLEMENTAL SCALE SQ SCH (21:00)
[2016-08-29] MEDS: ATORVASTATIN 20 MG TAB PO SCH (22:01)
[2016-08-29] MEDS: ALPRAZolam 0.25 MG TAB PO PRN (22:07)
[2016-08-30] VITALS: BP 127/59; PULSE 104; RESP 22; TEMP 99.1; O2SAT 94
[2016-08-30 04:00] VITALS: BP 138/65; PULSE 97; RESP 18; TEMP 97.9; O2SAT 95
[2016-08-30] MEDS: GLIMEPIRIDE 2 MG TAB PO SCH ×2 (05:31→16:31)
[2016-08-30] MEDS: GEMFIBROZIL 600 MG TAB PO SCH ×2 (05:31→16:31)
[2016-08-30] MEDS: INSULIN ASPART SUPPLEMENTAL SCALE SQ SCH ×4 (05:35→21:00)
[2016-08-30] MEDS: ACETAMINOPHEN 325 MG TAB PO PRN ×2 (05:40→09:32)
[2016-08-30 05:54] LABS: HEMATOCRIT 25.3 % (35.0-46.0); MEAN CELL VOLUME 87.4 FL (80.0-100.0); MEAN CORPUSCULAR HEMOGLOBIN 30.2 PG (27.0-34.0); MEAN CORPUSCULAR HGB CONC 34.5 % (32.0-36.0); PLATELET COUNT 150 TH/MM3 (150-450); RED BLOOD COUNT 2.89 MIL/MM3 (4.00-5.30); RED CELL DISTRIBUTION WIDTH 16.2 % (11.6-17.2)
[2016-08-30 05:59] LABS: HEMO FLAGS AUTO DIFF
[2016-08-30 06:10] LABS: BICARBONATE 22.8 MEQ/L (21.0-32.0); POTASSIUM 3.6 MEQ/L (3.5-5.1)
[2016-08-30 07:15] LABS: BANDS 2 % (0-6); NEUTROPHIL # MANUAL DIFF 0.2 TH/MM3 (1.8-7.7); OVALOCYTES 1+ (NORMAL); PLATELET ESTIMATE SMEAR NORMAL (NORMAL); PLATELET MORPHOLOGY NORMAL (NORMAL); POLYS (SEG NEUTROPHILS) 21 % (16-70); SCAN/DIFF FINAL DIFF MANUAL; WBC DIFF SAMPLE 100
[2016-08-30 08:33] VITALS: BP_SYST 138; BP_SYST 145; BP_DIAS 65; BP_DIAS 66; PULSE 68; PULSE 97; RESP 20; TEMP 96.3; TEMP 97.4; O2SAT 94; O2SAT 96
[2016-08-30] MEDS: LISINOPRIL 20 MG TAB PO SCH (09:28)
--- NOTE | 2016-08-30 10:51 | HHI.PR ---
Subjective Remarks Pt overall feeling better She is moving her legs more today but has not been out of bed Afebrile so far today Objective Vitals Vital Signs Date Time Temp Pulse Resp B/P Pulse Ox O2 Delivery O2 Flow Rate FiO2 08/30/16 08:33 97.4 97 20 145/66 94 08/30/16 06:41 18 08/30/16 04:00 97.9 97 18 138/65 95 08/30/16 00:00 99.1 104 22 127/59 94 08/29/16 21:00 99.5 106 21 147/64 94 08/29/16 18:50 100.4 08/29/16 16:29 98 17 137/65 97 Room Air 08/29/16 15:53 98.8 132 20 183/80 97 Room Air 08/29/16 08/29/16 08/30/16 15:00 23:00 07:00 Intake Total 120 ml 120 ml Output Total 350 ml 950 ml Balance -230 ml -830 ml Intake Oral 120 ml 120 ml Output Urine Total 350 ml 950 ml Result Diagram: 08/30/16 0531 08/30/16 0431 Other Results Laboratory Tests Test 08/29/16 08/29/16 08/30/16 08/30/16 16:52 18:50 04:31 05:31 White Blood Count 1.0 TH/MM3 1.0 TH/MM3 Red Blood Count 3.49 MIL/MM3 2.89 MIL/MM3 Hemoglobin 10.6 GM/DL 8.7 GM/DL Hematocrit 30.3 % 25.3 % Mean Corpuscular Volume 87.0 FL 87.4 FL Mean Corpuscular Hemoglobin 30.3 PG 30.2 PG Mean Corpuscular Hemoglobin 34.8 % 34.5 % Concent Red Cell Distribution Width 15.6 % 16.2 % Platelet Count 183 TH/MM3 150 TH/MM3 Mean Platelet Volume 9.7 FL 9.1 FL Neutrophils (%) (Auto) 36.3 % % Lymphocytes (%) (Auto) 29.5 % % Monocytes (%) (Auto) 31.4 % % Eosinophils (%) (Auto) 0.5 % % Basophils (%) (Auto) 2.3 % % Neutrophils # (Auto) 0.4 TH/MM3 TH/MM3 Lymphocytes # (Auto) 0.3 TH/MM3 TH/MM3 Monocytes # (Auto) 0.3 TH/MM3 TH/MM3 Eosinophils # (Auto) 0.0 TH/MM3 TH/MM3 Basophils # (Auto) 0.0 TH/MM3 TH/MM3 CBC Comment AUTO DIFF AUTO DIFF Differential Comment AUTO DIFF FINAL DIFF CONFIRMED MANUAL Platelet Estimate NORMAL NORMAL Platelet Morphology Comment NORMAL NORMAL Sodium Level 137 MEQ/L 142 MEQ/L Potassium Level 3.9 MEQ/L 3.6 MEQ/L Chloride Level 106 MEQ/L 109 MEQ/L Carbon Dioxide Level 20.5 MEQ/L 22.8 MEQ/L Anion Gap 11 MEQ/L 10 MEQ/L Blood Urea Nitrogen 20 MG/DL 14 MG/DL Creatinine 0.83 MG/DL 0.58 MG/DL Estimat Glomerular Filtration 68 ML/MIN 102 ML/MIN Rate Random Glucose 153 MG/DL 128 MG/DL Lactic Acid Level 1.2 mmol/L Calcium Level 9.6 MG/DL 9.4 MG/DL Total Bilirubin 0.7 MG/DL Aspartate Amino Transf 21 U/L (AST/SGOT) Alanine Aminotransferase 32 U/L (ALT/SGPT) Alkaline Phosphatase 108 U/L Total Creatine Kinase 38 U/L Total Protein 7.8 GM/DL Albumin 4.4 GM/DL Urine Color YELLOW Urine Turbidity HAZY Urine pH 5.5 Urine Specific [place] 1.009 Urine Protein 30 mg/dL Urine Glucose (UA) NEG mg/dL Urine Ketones NEG mg/dL Urine Occult Blood SMALL Urine Nitrite NEG Urine Bilirubin NEG Urine Urobilinogen LESS THAN 2.0 MG/DL Urine Leukocyte Esterase LARGE Urine RBC 5 /hpf Urine WBC /hpf Urine Squamous Epithelial 1 /hpf Cells Urine Transitional Epithelial 1 /hpf Cells Urine Amorphous Sediment RARE Urine Bacteria MOD /hpf Microscopic Urinalysis Comment CULTURE INDICATED Differential Total Cells 100 Counted Neutrophils % (Manual) 21 % Band Neutrophils % 2 % Lymphocytes % 60 % Monocytes % 17 % Neutrophils # (Manual) 0.2 TH/MM3 Ovalocytes 1+ Objective Remarks General: NAD, AAOx3 Chest: CTA Cardiac: Regular Abd: +BS, soft ND/NT Ext: No edema A/P Problem List: (1) Unable to ambulate Status: Acute Plan: - Pt is 71 y/o diagnosed with right breast cancer in February 2016. She underwent lumpectomy and LN removal and the LN were negative in April 2016. She had a port placed during surgery. She developed an infected seroma of surgical site requiring incision/drainage in May 2016. - About 3 weeks ago the port was removed due to nonfunction and IR placed a new port. - She underwent her second chemo treatment docetaxel/cyclophosphamide last week on 08/20/16, and since then, over the past a week, she has been very weak. Pt describes herself as being essentially bedridden. She says it has been hard to maneuver her legs to edge of bed and has been unable to walk. - She describes some chills but no fever at home. - Pt reported diarrhea x 2 days prior to admission but no vomiting or problems eating. No abdomen pain and no dysuria. - Blood and urine cx taken to eval for infectious cause of her sx's, these are pending. - Stool studies are ordered - Pt noted to have neutropenia with fever. - She has PCN allergy. Pt was given Levaquin and Vancomycin IV on 08/29/16. We will continue these today. - Await Oncology consultation - PT eval. - Cont. home meds as tolerated - DVT prophylaxis (2) Breast CA Status: Acute Plan: - See above (3) Neutropenic fever Status: Acute Plan: - See above (4) DM (diabetes mellitus) Status: Chronic Plan: - NovoLog SSI - Amaryl 2mg BIDAC - Accu checks (5) HTN (hypertension) Status: Chronic Plan: - See above (6) Cardiomyopathy Status: Chronic Plan: - EF 40-45% per onc records. Problem Qualifiers (1) DM (diabetes mellitus): Janine Addison Aug 30, 2016 10:51
[2016-08-30] MEDS ORDERED: Vancomycin Consult Pharmacy 1 EA OTHER SCH (11:15)
[2016-08-30 12:00] VITALS: BP 137/65; PULSE 100; RESP 21; TEMP 96.7; O2SAT 93
[2016-08-30] MEDS: VANCOMYCIN INJ 1,000 MG in SODIUM CHLOR 0.9% 250 ML INJ 250 ML IV SCH (14:00)
[2016-08-30 16:45] VITALS: BP 145/68; PULSE 101; RESP 21; TEMP 96.9; O2SAT 94
[2016-08-30 20:00] VITALS: BP 112/78; PULSE 109; RESP 18; TEMP 97.4; O2SAT 93
[2016-08-30] MEDS ORDERED: TEMAZEPAM 15 MG CAP PO PRN (21:00)
[2016-08-30] MEDS: ATORVASTATIN 20 MG TAB PO SCH (22:26)
[2016-08-30] MEDS: LEVOFLOXACIN 500 MG PREMIX INJ 100 ML IV SCH (22:29)
[2016-08-31 04:00] VITALS: BP 136/65; PULSE 95; RESP 20; TEMP 96.6; O2SAT 95
[2016-08-31] MEDS: INSULIN ASPART SUPPLEMENTAL SCALE SQ SCH ×4 (04:35→21:00)
[2016-08-31] MEDS: VANCOMYCIN INJ 1,000 MG in SODIUM CHLOR 0.9% 250 ML INJ 250 ML IV SCH ×2 (04:37→13:28)
[2016-08-31 06:16] LABS: AUTOMATED NEUTROPHIL # 0.2 TH/MM3 (1.8-7.7); BASOPHIL % 1.7 % (0.0-2.0); EOSINOPHIL % 1.4 % (0.0-4.0); HEMATOCRIT 25.9 % (35.0-46.0); LYMPH % 47.2 % (9.0-44.0); LYMPHOCYTE # 0.5 TH/MM3 (1.0-4.8); MEAN CELL VOLUME 86.7 FL (80.0-100.0); MEAN CORPUSCULAR HEMOGLOBIN 30.4 PG (27.0-34.0); MONO % 34.2 % (0.0-8.0); NEUT % 15.5 % (16.0-70.0); PLATELET COUNT 166 TH/MM3 (150-450); RED BLOOD COUNT 2.99 MIL/MM3 (4.00-5.30); RED CELL DISTRIBUTION WIDTH 16.3 % (11.6-17.2); WHITE BLOOD COUNT 1.1 TH/MM3 (4.0-11.0)
[2016-08-31 06:25] LABS: HEMO FLAGS AUTO DIFF
[2016-08-31 06:27] LABS: POTASSIUM 3.4 MEQ/L (3.5-5.1)
[2016-08-31 07:50] VITALS: BP_SYST 137; BP_SYST 195; BP_DIAS 63; BP_DIAS 84; PULSE 107; PULSE 87; RESP 20; TEMP 97; TEMP 98; O2SAT 92; O2SAT 94
[2016-08-31] MEDS: ACETAMINOPHEN 325 MG TAB PO PRN (08:50)
[2016-08-31] MEDS: GEMFIBROZIL 600 MG TAB PO SCH ×2 (08:50→16:15)
[2016-08-31] MEDS: LISINOPRIL 20 MG TAB PO SCH (08:50)
[2016-08-31] MEDS: GLIMEPIRIDE 2 MG TAB PO SCH ×2 (08:50→16:16)
[2016-08-31 09:26] LABS: BANDS 1 % (0-6); BASOPHILS 4 % (0-2); EOSINOPHILS 1 % (0-4); NEUTROPHIL # MANUAL DIFF 0.2 TH/MM3 (1.8-7.7); POLYS (SEG NEUTROPHILS) 18 % (16-70); WBC DIFF SAMPLE 100
[2016-08-31 09:27] LABS: OVALOCYTES 1+ (NORMAL); SCAN/DIFF FINAL DIFF MANUAL
[2016-08-31] MEDS ORDERED: PNEUMOCOCCAL POLYVALENT INJ 25 MCG/0.5 ML SYR IM ONE (10:00)
[2016-08-31] MEDS ORDERED: GABAPENTIN 300 MG CAP PO ONE (10:30)
--- NOTE | 2016-08-31 10:42 | PD.ONC.PN ---
Subjective Subjective Remarks Afebrile overnight. complaining of severe peripheral neuropathy in her fingers. also pain in her joints. no more diarrhea, one loose stool today. Objective Data Date Time Temp Pulse Resp B/P Pulse Ox O2 Delivery O2 Flow Rate FiO2 08/31/16 07:50 98.0 87 20 137/63 92 08/31/16 07:50 97.0 107 20 195/84 94 08/31/16 04:00 96.6 95 20 136/65 95 08/30/16 20:00 97.4 109 18 112/78 93 08/30/16 16:45 96.9 101 21 145/68 94 08/30/16 12:00 96.7 100 21 137/65 93 08/31/16 08/31/16 08/31/16 07:00 15:00 23:00 Intake Total 120 ml Balance 120 ml Result Diagram: 08/31/16 0435 08/31/16 0435 Laboratory Results Laboratory Tests Test 08/31/16 04:35 White Blood Count 1.1 TH/MM3 Red Blood Count 2.99 MIL/MM3 Hemoglobin 9.1 GM/DL Hematocrit 25.9 % Mean Corpuscular Volume 86.7 FL Mean Corpuscular Hemoglobin 30.4 PG Mean Corpuscular Hemoglobin 35.0 % Concent Red Cell Distribution Width 16.3 % Platelet Count 166 TH/MM3 Mean Platelet Volume 9.1 FL Neutrophils (%) (Auto) 15.5 % Lymphocytes (%) (Auto) 47.2 % Monocytes (%) (Auto) 34.2 % Eosinophils (%) (Auto) 1.4 % Basophils (%) (Auto) 1.7 % Neutrophils # (Auto) 0.2 TH/MM3 Lymphocytes # (Auto) 0.5 TH/MM3 Monocytes # (Auto) 0.4 TH/MM3 Eosinophils # (Auto) 0.0 TH/MM3 Basophils # (Auto) 0.0 TH/MM3 CBC Comment AUTO DIFF Differential Total Cells 100 Counted Neutrophils % (Manual) 18 % Band Neutrophils % 1 % Lymphocytes % 49 % Monocytes % 27 % Eosinophils % 1 % Basophils % 4 % Neutrophils # (Manual) 0.2 TH/MM3 Differential Comment FINAL DIFF MANUAL Ovalocytes 1+ Sodium Level 141 MEQ/L Potassium Level 3.4 MEQ/L Chloride Level 108 MEQ/L Carbon Dioxide Level 23.0 MEQ/L Anion Gap 10 MEQ/L Blood Urea Nitrogen 19 MG/DL Creatinine 0.58 MG/DL Estimat Glomerular Filtration 102 ML/MIN Rate Random Glucose 114 MG/DL Calcium Level 9.1 MG/DL Culture Results Microbiology Date/Time Procedure Status Source Growth 08/29/16 16:30 Aerobic Blood Culture - Preliminary Resulted Blood Peripheral NO GROWTH IN 1 DAY 08/29/16 16:30 Anaerobic Blood Culture - Preliminary Resulted Blood Peripheral NO GROWTH IN 1 DAY 08/29/16 16:50 Aerobic Blood Culture - Preliminary Resulted Blood Peripheral NO GROWTH IN 1 DAY 08/29/16 16:50 Anaerobic Blood Culture - Preliminary Resulted Blood Peripheral NO GROWTH IN 1 DAY 08/29/16 18:50 Urine Culture - Final Complete Urine Clean Catch Escherichia Coli Administered Medications Medications (Trade) Dose Ordered Sig/Cali Route PRN Reason Start Time Stop Time Status Last Admin Dose Admin Amlodipine Besylate (Norvasc) 10 mg DAILY PO 08/30/16 09:00 08/31/16 08:50 Atorvastatin Calcium (Lipitor) 20 mg HS PO 08/29/16 21:00 08/30/16 22:26 Gemfibrozil (Lopid) 600 mg BIDAC PO 08/30/16 07:00 08/31/16 08:50 Glimepiride (Amaryl) 2 mg BIDAC PO 08/30/16 07:00 08/31/16 08:50 Lisinopril (Prinivil) 20 mg DAILY PO 08/30/16 09:00 08/31/16 08:50 Alprazolam (Xanax) 0.25 mg Q8H PRN PO ANXIETY 08/29/16 21:00 08/29/16 22:07 Acetaminophen 650 mg 650 mg Q4H PRN PO pain/fever 08/29/16 21:00 08/31/16 08:50 Vancomycin HCl 1000 mg/Sodium Chloride 250 ml @ 250 mls/hr Q12H IV 08/30/16 14:00 08/31/16 04:37 Levofloxacin/ Dextrose (Levaquin 500 Mg Premix Inj) 100 ml @ 100 mls/hr Q24H IV 08/30/16 22:00 08/30/16 22:29 Temazepam (Restoril) 15 mg HS PRN PO insomnia 08/30/16 21:00 08/30/16 22:26 Objective Remarks GENERAL: Chronically ill appearing female, upright in chair next to bed. SKIN: Warm and dry. port in place, left chest wall. HEAD: Normocephalic. EYES: No injection or drainage. NECK: Supple, trachea midline CARDIOVASCULAR: Regular rate and rhythm RESPIRATORY: Breath sounds equal bilaterally. No accessory muscle use. GASTROINTESTINAL: Abdomen soft, non-tender, nondistended. EXTREMITIES: No cyanosis NEUROLOGICAL: awake and alert, normal speech. moving all extremities. Assessment/Plan Problem List: (1) Neutropenic fever Status: Acute Plan: 08/31: start Neupogen. continue antibiotics. monitor blood cultures --BC no growth --UC + GNR --on Vanco + Levaquin (2) Neuropathy Status: Acute Plan: --d/t chemotherapy --will start Gabapentin (3) Breast CA Status: Acute Plan: 08/31: will obtain repeat echo. while inpatient in preparation for new chemotherapy outpatient. 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 --started on Taxotere and cytoxan 07/30. has received two cycles (4) DVT prophylaxis Status: Acute Plan: --on Lovenox 40mg SQ q24 (5) Weakness Status: Acute Plan: --before admission c/o leg weakness and difficulty walking. now states that is resolved and she is walking with walker. --discussed obtaining MRI spine and brain to assess but she is refusing at this time. Assessment 71y/o female with breast cancer, admitted with weakness, neutropenic fever. Attending Statement no more fevers. C/O tingling and numbness fingers and lower leg weakness. start Neurontin for peripheral neuropathy. start neupogen Continue A/B Has UTI Sara Guerra Aug 31, 2016 10:42 Tiera Mary MD Aug 31, 2016 22:16
--- NOTE | 2016-08-31 10:53 | MB ---
cc: SANJIV SHANE M.D., ABDUL J. M.D. DATE OF CONSULTATION 08/30/2016 REASON FOR CONSULTATION Consult requested by Dr. Shane for followup of neutropenic fever in a patient who is on chemotherapy for breast cancer. HISTORY OF PRESENT ILLNESS This is a 71-year-old very pleasant white female. She was diagnosed with right breast cancer in February of this year. 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 She underwent lumpectomy and sentinel lymph node sampling. The pathology report showed moderately differentiated invasive metaplastic carcinoma. The tumor was 6.5 cm. All four lymph nodes were negative. Her left ventricular ejection fraction was low at 40-55%. I have recommended adjuvant chemotherapy. However, the patient had developed postsurgical mastitis which was treated with antibiotics and chemotherapy was delayed. Finally she was started on adjuvant chemotherapy, Taxotere and Cytoxan, on July 30, a month ago. The patient has tolerated the chemotherapy well. The patient states that the first week after the chemotherapy she was feeling better but in the last week she is not feeling well. She has been complaining of weakness, tiredness, fatigue. She has no energy. She came to the emergency room due to severe weakness of lower legs. She denies any fever. CBC on admission showed severe neutropenia with a white count of 1.0, hemoglobin 10.6, hematocrit 30.3, platelet count of 183. The absolute neutrophil count is only 400. The patient is admitted to the hospital for neutropenia with fever. She is on the antibiotic. I have been asked to see her for further evaluation. REVIEW OF SYSTEMS The patient denies any fever. She is complaining of weakness and fatigue. She is complaining of no energy to stand and walk around due to the weakness of lower legs. She does not have any fevers. The rest of the review of systems is negative. PAST MEDICAL HISTORY 1. Arthritis, 2. Diabetes mellitus. 3. Hypercholesteremia. 4. Hypertension. 5. Right breast cancer. PAST SURGICAL HISTORY 1. Lumpectomy and sentinel lymph node sampling of the right breast cancer. 2. Breast biopsy. 3. Colonoscopy. 4. Jcypsj-[id number] placement. ALLERGIES ALENDRONATE. CODEINE. DOXYCYCLINE. NIFEDIPINE. PENICILLIN. SULFA DRUGS. MEDICATIONS Please see EMR. FAMILY HISTORY Noncontributory. SOCIAL HISTORY The patient does not smoke cigarettes, does not drink alcohol. PHYSICAL EXAMINATION GENERAL: This is a well-developed, well-nourished white female in no apparent distress. VITAL SIGNS: Stable. HEENT: PERRLA, EOMI. Anicteric. No oral lesions noted. NECK: Supple. LYMPHATICS: There is no cervical, supraclavicular or axillary lymphadenopathy noted. LUNGS: Clear. No wheezing, rhonchi or rales. HEART: Regular rate and rhythm. ABDOMEN: Soft, nontender. No hepatosplenomegaly. EXTREMITIES: No pedal edema. NEUROLOGY: Awake, alert, oriented x 3. SKIN: No significant lesions are noted. ASSESSMENT 1. Right breast cancer status post surgery, currently on chemotherapy Taxotere and cytoxan. 2. Severe pancytopenia due to the chemotherapy. PLAN I have discussed with the patient regarding the reason for admission to the hospital. She has been complaining of weakness of both lower legs.. She is neutropenic. She is on the antibiotic for possible sepsis. . I agree with your antibiotic recommendations. We will give her Neupogen 480 mcg daily as the patient has not received any growth factor such as neulasta after the chemotherapy. Thank you for asking my opinion. Sreekanth Mary MD /LUKE /10:00 PM /10:45 AM PAULINO
--- NOTE | 2016-08-31 10:55 | HHI.PR ---
Subjective Remarks Pt had one loose stool today Pt has been afebrile since admission. Pt ambulating better with PT Objective Vitals Vital Signs Date Time Temp Pulse Resp B/P Pulse Ox O2 Delivery O2 Flow Rate FiO2 08/31/16 07:50 98.0 87 20 137/63 92 08/31/16 07:50 97.0 107 20 195/84 94 08/31/16 04:00 96.6 95 20 136/65 95 08/30/16 20:00 97.4 109 18 112/78 93 08/30/16 16:45 96.9 101 21 145/68 94 08/30/16 12:00 96.7 100 21 137/65 93 08/30/16 08/30/16 08/31/16 15:00 23:00 07:00 Intake Total 360 ml 240 ml 120 ml Output Total 250 ml Balance 360 ml -10 ml 120 ml Intake Oral 360 ml 240 ml 120 ml Output Urine Total 250 ml # Voids 3 2 # Bowel Movements 0 1 Result Diagram: 08/31/16 0435 08/31/16 0435 Other Results Laboratory Tests Test 08/29/16 08/29/16 08/30/16 08/30/16 16:52 18:50 04:31 05:31 White Blood Count 1.0 TH/MM3 1.0 TH/MM3 Red Blood Count 3.49 MIL/MM3 2.89 MIL/MM3 Hemoglobin 10.6 GM/DL 8.7 GM/DL Hematocrit 30.3 % 25.3 % Mean Corpuscular Volume 87.0 FL 87.4 FL Mean Corpuscular Hemoglobin 30.3 PG 30.2 PG Mean Corpuscular Hemoglobin 34.8 % 34.5 % Concent Red Cell Distribution Width 15.6 % 16.2 % Platelet Count 183 TH/MM3 150 TH/MM3 Mean Platelet Volume 9.7 FL 9.1 FL Neutrophils (%) (Auto) 36.3 % % Lymphocytes (%) (Auto) 29.5 % % Monocytes (%) (Auto) 31.4 % % Eosinophils (%) (Auto) 0.5 % % Basophils (%) (Auto) 2.3 % % Neutrophils # (Auto) 0.4 TH/MM3 TH/MM3 Lymphocytes # (Auto) 0.3 TH/MM3 TH/MM3 Monocytes # (Auto) 0.3 TH/MM3 TH/MM3 Eosinophils # (Auto) 0.0 TH/MM3 TH/MM3 Basophils # (Auto) 0.0 TH/MM3 TH/MM3 CBC Comment AUTO DIFF AUTO DIFF Differential Comment AUTO DIFF FINAL DIFF CONFIRMED MANUAL Platelet Estimate NORMAL NORMAL Platelet Morphology Comment NORMAL NORMAL Sodium Level 137 MEQ/L 142 MEQ/L Potassium Level 3.9 MEQ/L 3.6 MEQ/L Chloride Level 106 MEQ/L 109 MEQ/L Carbon Dioxide Level 20.5 MEQ/L 22.8 MEQ/L Anion Gap 11 MEQ/L 10 MEQ/L Blood Urea Nitrogen 20 MG/DL 14 MG/DL Creatinine 0.83 MG/DL 0.58 MG/DL Estimat Glomerular Filtration 68 ML/MIN 102 ML/MIN Rate Random Glucose 153 MG/DL 128 MG/DL Lactic Acid Level 1.2 mmol/L Calcium Level 9.6 MG/DL 9.4 MG/DL Total Bilirubin 0.7 MG/DL Aspartate Amino Transf 21 U/L (AST/SGOT) Alanine Aminotransferase 32 U/L (ALT/SGPT) Alkaline Phosphatase 108 U/L Total Creatine Kinase 38 U/L Total Protein 7.8 GM/DL Albumin 4.4 GM/DL Urine Color YELLOW Urine Turbidity HAZY Urine pH 5.5 Urine Specific [place] 1.009 Urine Protein 30 mg/dL Urine Glucose (UA) NEG mg/dL Urine Ketones NEG mg/dL Urine Occult Blood SMALL Urine Nitrite NEG Urine Bilirubin NEG Urine Urobilinogen LESS THAN 2.0 MG/DL Urine Leukocyte Esterase LARGE Urine RBC 5 /hpf Urine WBC /hpf Urine Squamous Epithelial 1 /hpf Cells Urine Transitional Epithelial 1 /hpf Cells Urine Amorphous Sediment RARE Urine Bacteria MOD /hpf Microscopic Urinalysis Comment CULTURE INDICATED Differential Total Cells 100 Counted Neutrophils % (Manual) 21 % Band Neutrophils % 2 % Lymphocytes % 60 % Monocytes % 17 % Neutrophils # (Manual) 0.2 TH/MM3 Ovalocytes 1+ Test 08/31/16 04:35 White Blood Count 1.1 TH/MM3 Red Blood Count 2.99 MIL/MM3 Hemoglobin 9.1 GM/DL Hematocrit 25.9 % Mean Corpuscular Volume 86.7 FL Mean Corpuscular Hemoglobin 30.4 PG Mean Corpuscular Hemoglobin 35.0 % Concent Red Cell Distribution Width 16.3 % Platelet Count 166 TH/MM3 Mean Platelet Volume 9.1 FL Neutrophils (%) (Auto) 15.5 % Lymphocytes (%) (Auto) 47.2 % Monocytes (%) (Auto) 34.2 % Eosinophils (%) (Auto) 1.4 % Basophils (%) (Auto) 1.7 % Neutrophils # (Auto) 0.2 TH/MM3 Lymphocytes # (Auto) 0.5 TH/MM3 Monocytes # (Auto) 0.4 TH/MM3 Eosinophils # (Auto) 0.0 TH/MM3 Basophils # (Auto) 0.0 TH/MM3 CBC Comment AUTO DIFF Differential Total Cells 100 Counted Neutrophils % (Manual) 18 % Band Neutrophils % 1 % Lymphocytes % 49 % Monocytes % 27 % Eosinophils % 1 % Basophils % 4 % Neutrophils # (Manual) 0.2 TH/MM3 Differential Comment FINAL DIFF MANUAL Ovalocytes 1+ Sodium Level 141 MEQ/L Potassium Level 3.4 MEQ/L Chloride Level 108 MEQ/L Carbon Dioxide Level 23.0 MEQ/L Anion Gap 10 MEQ/L Blood Urea Nitrogen 19 MG/DL Creatinine 0.58 MG/DL Estimat Glomerular Filtration 102 ML/MIN Rate Random Glucose 114 MG/DL Calcium Level 9.1 MG/DL Objective Remarks General: NAD, AAOx3 Chest: CTA Cardiac: Regular Abd: +BS, soft ND/NT Ext: No edema A/P Problem List: (1) Unable to ambulate Status: Acute Plan: - Pt is 71 y/o diagnosed with right breast cancer in February 2016. She underwent lumpectomy and LN removal and the LN were negative in April 2016. She had a port placed during surgery. She developed an infected seroma of surgical site requiring incision/drainage in May 2016. - About 3 weeks ago the port was removed due to nonfunction and IR placed a new port. - She underwent her second chemo treatment docetaxel/cyclophosphamide last week on 08/20/16, and since then, over the past a week, she has been very weak. Pt describes herself as being essentially bedridden. She says it has been hard to maneuver her legs to edge of bed and has been unable to walk. - She describes some chills but no fever at home. - Pt reported diarrhea x 2 days prior to admission but no vomiting or problems eating. No abdomen pain and no dysuria. - Blood and urine cx taken to eval for infectious cause of her sx's. - Blood cultures with NGTD - Urine culture resulted in E. coli, pansensitive, Pt is on Levaquin - Cont. Levaquin and Vancomycin IV. - Stool studies are ordered - Pt noted to have neutropenia with fever. - Appreciate oncology consultation. - Pt to be started on Neupogen today. - 2D echo ordered in anticipation for new chemo - Pt refused MRI of the spine - PT daily - Cont. home meds as tolerated - DVT prophylaxis (2) Breast CA Status: Acute Plan: - See above (3) Neutropenic fever Status: Acute Plan: - See above (4) DM (diabetes mellitus) Status: Chronic Plan: - NovoLog SSI - Amaryl 2mg BIDAC - Accu checks (5) HTN (hypertension) Status: Chronic Plan: - See above (6) Cardiomyopathy Status: Chronic Plan: - EF 40-45% per onc records. Problem Qualifiers (1) DM (diabetes mellitus): Janine Addison Aug 31, 2016 10:54
[2016-08-31] MEDS: ENOXAPARIN SODIUM 40 MG/0.4 ML SYRINGE SQ SCH (11:27)
[2016-08-31 11:50] VITALS: BP 145/67; PULSE 99; RESP 20; TEMP 96.6; O2SAT 95
[2016-08-31] MEDS ORDERED: TEMAZEPAM 15 MG CAP PO PRN (12:00)
[2016-08-31] MEDS ORDERED: FILGRASTIM 480 MCG/1.6 ML VIAL SQ SCH (14:00)
[2016-08-31 15:45] VITALS: BP 151/65; PULSE 67; RESP 20; TEMP 96.7; O2SAT 97
[2016-08-31 21:00] VITALS: BP 146/70; PULSE 99; RESP 18; TEMP 98.6; O2SAT 96
[2016-08-31] MEDS: LEVOFLOXACIN 500 MG PREMIX INJ 100 ML IV SCH ×2 (21:52→21:59)
[2016-08-31] MEDS: ATORVASTATIN 20 MG TAB PO SCH (21:55)
[2016-09-01] VITALS: BP 123/58; PULSE 96; RESP 18; TEMP 98.1; O2SAT 95
[2016-09-01] MEDS ORDERED: PHARMACY ORDERED LAB ONE (01:45)
[2016-09-01] MEDS: VANCOMYCIN INJ 1,000 MG in SODIUM CHLOR 0.9% 250 ML INJ 250 ML IV SCH (02:12)
[2016-09-01] MEDS: ACETAMINOPHEN 325 MG TAB PO PRN (02:19)
[2016-09-01 05:00] VITALS: BP 157/71; PULSE 96; RESP 18; TEMP 98.1; O2SAT 96
[2016-09-01] MEDS: ALPRAZolam 0.25 MG TAB PO PRN (05:18)
[2016-09-01] MEDS: GEMFIBROZIL 600 MG TAB PO SCH (05:20)
[2016-09-01] MEDS: INSULIN ASPART SUPPLEMENTAL SCALE SQ SCH ×2 (05:25→13:20)
[2016-09-01] MEDS: ACETAMINOPHEN/HYDROcodone 325 MG/5 MG TAB PO PRN ×2 (06:16→12:00)
[2016-09-01 06:19] LABS: AUTOMATED NEUTROPHIL # 2.1 TH/MM3 (1.8-7.7); BASOPHIL % 0.8 % (0.0-2.0); BICARBONATE 25.6 MEQ/L (21.0-32.0); EOSINOPHIL % 0.8 % (0.0-4.0); HEMATOCRIT 26.6 % (35.0-46.0); HEMO FLAGS DIFF FINAL; LYMPH % 21.5 % (9.0-44.0); LYMPHOCYTE # 0.9 TH/MM3 (1.0-4.8); MEAN CELL VOLUME 87.2 FL (80.0-100.0); MEAN CORPUSCULAR HEMOGLOBIN 30.3 PG (27.0-34.0); MEAN CORPUSCULAR HGB CONC 34.8 % (32.0-36.0); MONO % 23.7 % (0.0-8.0); NEUT % 53.2 % (16.0-70.0); PLATELET COUNT 161 TH/MM3 (150-450); POTASSIUM 3.4 MEQ/L (3.5-5.1); RED BLOOD COUNT 3.05 MIL/MM3 (4.00-5.30); RED CELL DISTRIBUTION WIDTH 16.4 % (11.6-17.2)
[2016-09-01 07:50] VITALS: BP 130/63; PULSE 101; RESP 20; TEMP 98.2; O2SAT 95
[2016-09-01] MEDS: LISINOPRIL 20 MG TAB PO SCH (09:49)
[2016-09-01] MEDS: GLIMEPIRIDE 2 MG TAB PO SCH ×2 (09:50→17:03)
[2016-09-01] MEDS: GABAPENTIN 300 MG CAP PO SCH ×2 (09:50→17:03)
[2016-09-01 11:50] VITALS: BP 142/64; PULSE 99; RESP 20; TEMP 97.9; O2SAT 95
[2016-09-01] MEDS: ENOXAPARIN SODIUM 40 MG/0.4 ML SYRINGE SQ SCH (12:01)
[2016-09-01] MEDS ORDERED: POTASSIUM CHLORIDE 20 MEQ CONTROLLED RELEASE TAB PO ONE (12:15)
--- NOTE | 2016-09-01 12:43 | PD.ONC.PN ---
Subjective Subjective Remarks Afebrile overnight Patient complains of right knee pain and tingling in her fingers She is anxious about being discharged today Continues to work with physical therapy Objective Data Date Time Temp Pulse Resp B/P Pulse Ox O2 Delivery O2 Flow Rate FiO2 09/01/16 07:50 98.2 101 20 130/63 95 09/01/16 05:00 98.1 96 18 157/71 96 09/01/16 00:00 98.1 96 18 123/58 95 08/31/16 21:00 98.6 99 18 146/70 96 08/31/16 15:45 96.7 67 20 151/65 97 09/01/16 09/01/16 09/01/16 07:00 15:00 23:00 Intake Total 120 ml Balance 120 ml Result Diagram: 09/01/1630 09/01/16 0530 Laboratory Results Laboratory Tests Test 09/01/16 09/01/16 01:45 05:30 Vancomycin Level Trough 12.6 MCG/ML White Blood Count 4.0 TH/MM3 Red Blood Count 3.05 MIL/MM3 Hemoglobin 9.2 GM/DL Hematocrit 26.6 % Mean Corpuscular Volume 87.2 FL Mean Corpuscular Hemoglobin 30.3 PG Mean Corpuscular Hemoglobin 34.8 % Concent Red Cell Distribution Width 16.4 % Platelet Count 161 TH/MM3 Mean Platelet Volume 8.8 FL Neutrophils (%) (Auto) 53.2 % Lymphocytes (%) (Auto) 21.5 % Monocytes (%) (Auto) 23.7 % Eosinophils (%) (Auto) 0.8 % Basophils (%) (Auto) 0.8 % Neutrophils # (Auto) 2.1 TH/MM3 Lymphocytes # (Auto) 0.9 TH/MM3 Monocytes # (Auto) 0.9 TH/MM3 Eosinophils # (Auto) 0.0 TH/MM3 Basophils # (Auto) 0.0 TH/MM3 CBC Comment DIFF FINAL Differential Comment Sodium Level 144 MEQ/L Potassium Level 3.4 MEQ/L Chloride Level 111 MEQ/L Carbon Dioxide Level 25.6 MEQ/L Anion Gap 7 MEQ/L Blood Urea Nitrogen 19 MG/DL Creatinine 0.76 MG/DL Estimat Glomerular Filtration 75 ML/MIN Rate Random Glucose 79 MG/DL Calcium Level 8.7 MG/DL Culture Results Microbiology Date/Time Procedure Status Source Growth 08/29/16 16:30 Aerobic Blood Culture - Preliminary Resulted Blood Peripheral NO GROWTH IN 3 DAYS 08/29/16 16:30 Anaerobic Blood Culture - Preliminary Resulted Blood Peripheral NO GROWTH IN 3 DAYS 08/29/16 16:50 Aerobic Blood Culture - Preliminary Resulted Blood Peripheral NO GROWTH IN 3 DAYS 08/29/16 16:50 Anaerobic Blood Culture - Preliminary Resulted Blood Peripheral NO GROWTH IN 3 DAYS 08/29/16 18:50 Urine Culture - Final Complete Urine Clean Catch Escherichia Coli Administered Medications Medications (Trade) Dose Ordered Sig/Cali Route PRN Reason Start Time Stop Time Status Last Admin Dose Admin Amlodipine Besylate (Norvasc) 10 mg DAILY PO 08/30/16 09:00 09/01/16 09:50 Atorvastatin Calcium (Lipitor) 20 mg HS PO 08/29/16 21:00 08/31/16 21:55 Gemfibrozil (Lopid) 600 mg BIDAC PO 08/30/16 07:00 09/01/16 05:20 Glimepiride (Amaryl) 2 mg BIDAC PO 08/30/16 07:00 09/01/16 09:50 Lisinopril (Prinivil) 20 mg DAILY PO 08/30/16 09:00 09/01/16 09:49 Alprazolam (Xanax) 0.25 mg Q8H PRN PO ANXIETY 08/29/16 21:00 09/01/16 05:18 Acetaminophen (Tylenol) 650 mg Q4H PRN PO pain/fever 08/29/16 21:00 09/01/16 02:19 Ondansetron HCl 4 mg 4 mg Q6HR PRN IV PUSH NAUSEA/VOMITING 08/29/16 21:00 09/01/16 05:28 Levofloxacin/ Dextrose (Levaquin 500 Mg Premix Inj) 100 ml @ 100 mls/hr Q24H IV 08/30/16 22:00 08/30/16 22:29 Gabapentin (Neurontin) 300 mg BID PO 09/01/16 09:00 09/01/16 21:01 09/01/16 09:50 Filgrastim (Neupogen Inj) 480 mcg DAILY@14 SQ 08/31/16 14:00 08/31/16 13:28 Enoxaparin Sodium (Lovenox Inj) 40 mg Q24H SQ 08/31/16 11:00 09/01/16 12:01 Temazepam (Restoril) 30 mg HS PRN PO insomnia 08/31/16 12:00 08/31/16 21:51 Acetaminophen/ Hydrocodone Bitart ([place] 5-325 Mg) 1 tab Q6H PRN PO PAIN SCALE 1 TO 10 09/01/16 05:30 09/01/16 12:00 Objective Remarks GENERAL: Elderly female sitting up in chair at bedside in no distress. SKIN: Warm and dry. port in place, left chest wall. HEAD: Normocephalic. EYES: No injection or drainage. NECK: Supple, trachea midline CARDIOVASCULAR: + S1/S2. RESPIRATORY: Lungs clear anteriorly. Breathing unlabored. GASTROINTESTINAL: Abdomen soft, non-tender, nondistended. EXTREMITIES: No cyanosis. No edema. NEUROLOGICAL: Awake and alert, normal speech. Moving all extremities. Assessment/Plan Problem List: (1) Neutropenic fever Status: Acute Plan: 09/01: Okay for discharge from oncology standpoint. Follow up in clinic. Stop Neupogen today. Discussed with patient that gabapentin would take some time to make a difference in her neuropathy. 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 --started on Taxotere and cytoxan 07/30. has received two cycles (4) DVT prophylaxis Status: Acute Plan: --on Lovenox 40mg SQ q24 (5) Weakness Status: Acute Plan: --before admission c/o leg weakness and difficulty walking. now states that is resolved and she is walking with walker. --discussed obtaining MRI spine and brain to assess but she is refusing at this time. Assessment 71y/o female with breast cancer, admitted with weakness, neutropenic fever. Attending Statement numbness and tingling better on Neurontin WBC 4.0 . Neutropenia resolved. Ok to d/c home FU office. Myesha Houser Sep 01, 2016 12:42 Tiera Mary MD Sep 01, 2016 12:46
[2016-09-01] MEDS ORDERED: LEVO500T8 PO (13:44)
[2016-09-01] MEDS ORDERED: NEUR300C PO (13:44)
[2016-09-01] MEDS ORDERED: VANCOMYCIN INJ 1,250 MG in SODIUM CHLOR 0.9% 250 ML INJ 250 ML IV SCH (14:00)
--- NOTE | 2016-09-01 14:07 | HHI.FF ---
Face to Face Verification Diagnosis: (1) Neutropenic fever (2) Breast CA (3) DM (diabetes mellitus) (4) HTN (hypertension) Physical Therapy Order: Evaluate and Treat, Improve ambulation, Strength and gait training Home Health Nursing Order: Medical education Signs/symptoms of disease process Medication education-adverse effect Nursing assessment with vital signs I have seen patient Shahnaz Ventura on 09/01/16. My clinical findings support the need for the requested home health care services because: Ltd mobility - disease progression Deconditioned w/ increased weakness Med compliance is questionable Need for psychosocial assistance I certify that my clinical findings support that this patient is homebound because: Unsafe to leave home unassisted Need for psychosocial assistance Unable to use public transportation Pawel Segura DO Sep 01, 2016 14:07
--- NOTE | 2016-09-01 14:35 | HHI.DS ---
Discharge Summary Admission Date Aug 29, 2016 at 18:07 Discharge Date: Sep 01, 2016 Admitting Diagnosis weakness (1) Unable to ambulate Diagnosis: Principal (2) Breast CA Diagnosis: Secondary (3) Neutropenic fever Diagnosis: Secondary (4) DM (diabetes mellitus) Diagnosis: Secondary (5) HTN (hypertension) Diagnosis: Secondary (6) Cardiomyopathy Diagnosis: Secondary Consultants Dr. Sreekanth Mary - Oncology Brief History Pt is 71 yo diagnosed with right breast ca in February. She underwent lumpectomy and l.n. were negative in April. She had a port placed during surgery. She developed an infected seroma of surgical site requiring incision/drainage in May. About 3 weeks ago the port was removed due to nonfunction and IR placed a new port. She underwent her second chemo treatment docetaxel/cyclophosphamide last weak on Tuesday and since this past Tuesday or a week ago..has been very weak. Pt describes being essentially bedridden. She says it has been hard to maneuver her legs to edge of bed and has been unable to walk. she described some chills but no fever at home. diarrhea now x 2 days but no vomiting or problems eating. no abdomen pain and no dysuria. CBC/BMP: 09/01/16 0530 09/01/16 0530 Significant Findings Laboratory Tests Test 08/29/16 08/29/16 08/30/16 08/30/16 16:52 18:50 04:31 05:31 White Blood Count 1.0 TH/MM3 1.0 TH/MM3 (4.0-11.0) (4.0-11.0) Red Blood Count 3.49 MIL/MM3 2.89 MIL/MM3 (4.00-5.30) (4.00-5.30) Hemoglobin 10.6 GM/DL 8.7 GM/DL (11.6-15.3) (11.6-15.3) Hematocrit 30.3 % 25.3 % (35.0-46.0) (35.0-46.0) Monocytes (%) (Auto) 31.4 % (0.0-8.0) Basophils (%) (Auto) 2.3 % (0.0-2.0) Neutrophils # (Auto) 0.4 TH/MM3 (1.8-7.7) Lymphocytes # (Auto) 0.3 TH/MM3 (1.0-4.8) Carbon Dioxide Level 20.5 MEQ/L (21.0-32.0) Blood Urea Nitrogen 20 MG/DL (7-18) Estimat Glomerular Filtration 68 ML/MIN (>89) Rate Random Glucose 153 MG/DL 128 MG/DL (74-106) (74-106) Urine Turbidity HAZY (CLEAR) Urine Protein 30 mg/dL (NEG-TRACE) Urine Occult Blood SMALL (NEG) Urine Leukocyte Esterase LARGE (NEG) Urine RBC 5 /hpf (0-3) Urine Bacteria MOD /hpf (NONE) Chloride Level 109 MEQ/L (98-107) Lymphocytes % 60 % (9-44) Monocytes % 17 % (0-8) Neutrophils # (Manual) 0.2 TH/MM3 (1.8-7.7) Ovalocytes 1+ (NORMAL) Test 08/31/16 09/01/16 09/01/16 04:35 01:45 05:30 White Blood Count 1.1 TH/MM3 (4.0-11.0) Red Blood Count 2.99 MIL/MM3 3.05 MIL/MM3 (4.00-5.30) (4.00-5.30) Hemoglobin 9.1 GM/DL 9.2 GM/DL (11.6-15.3) (11.6-15.3) Hematocrit 25.9 % 26.6 % (35.0-46.0) (35.0-46.0) Neutrophils (%) (Auto) 15.5 % (16.0-70.0) Lymphocytes (%) (Auto) 47.2 % (9.0-44.0) Monocytes (%) (Auto) 34.2 % 23.7 % (0.0-8.0) (0.0-8.0) Neutrophils # (Auto) 0.2 TH/MM3 (1.8-7.7) Lymphocytes # (Auto) 0.5 TH/MM3 0.9 TH/MM3 (1.0-4.8) (1.0-4.8) Lymphocytes % 49 % (9-44) Monocytes % 27 % (0-8) Basophils % 4 % (0-2) Neutrophils # (Manual) 0.2 TH/MM3 (1.8-7.7) Ovalocytes 1+ (NORMAL) Potassium Level 3.4 MEQ/L 3.4 MEQ/L (3.5-5.1) (3.5-5.1) Chloride Level 108 MEQ/L 111 MEQ/L (98-107) (98-107) Blood Urea Nitrogen 19 MG/DL (7-18) 19 MG/DL (7-18) Random Glucose 114 MG/DL (74-106) Vancomycin Level Trough 12.6 MCG/ML (5.0-10.0) Estimat Glomerular Filtration 75 ML/MIN (>89) Rate PE at Discharge General: NAD, AAOx3 Chest: CTA Cardiac: Regular Abd: +BS, soft ND/NT Ext: No edema Hospital Course Pt is 71 y/o diagnosed with right breast cancer in February 2016. She underwent lumpectomy and LN removal and the LN were negative in April 2016. She had a port placed during surgery. She developed an infected seroma of surgical site requiring incision/drainage in May 2016. About 3 weeks ago the port was removed due to nonfunction and IR placed a new port. She underwent her second chemo treatment docetaxel/cyclophosphamide last week on 08/20/16, and since then, over the past a week, she has been very weak. Pt describes herself as being essentially bedridden. She says it has been hard to maneuver her legs to edge of bed and has been unable to walk. She describes some chills but no fever at home. Pt reported diarrhea x 2 days prior to admission but no vomiting or problems eating. No abdomen pain and no dysuria. Blood and urine cx taken to eval for infectious cause of her sx's. Pt was started on Levaquin and Vancomycin IV at admission for broad spectrum coverage. Blood cultures with NGTD. Urine culture resulted in E. coli, pansensitive, Pt is on Levaquin. Pt noted to have neutropenia with fever. Oncology was consulted at admission. Pt was given Neupogen on 08/31/16 with improvement in her counts. 2D echo ordered in anticipation for new chemo. Pt refused MRI of the spine. Pt was started on Gabapentin 300mg BID for peripheral neuropathy and this was increased to TID at discharge. Pt was seen by PT and was ambulating in the halls using FWW. She will be discharged home with HHC/PT. She will continue Levaquin 500mg po daily x 3 more days. Pt will followup with Dr. Mary in 1 week. Pt is to followup with her PCP, Dr. Wilks, in 1 week. Pt Condition on Discharge: Stable Discharge Disposition: Disch w/ Home Health Serv Discharge Instructions DIET: Follow Instructions for: Heart Healthy Diet, Diabetic Diet Activities you can perform: Regular-No Restrictions Follow up Referrals: Oncology - [address] Mary PCP Follow-up - [address] Wilks New Medications: Levofloxacin (Levofloxacin) 500 Mg Tablet 500 MG PO DAILY Infection #3 Ref 0 TAB Gabapentin (Neurontin) 300 Mg Cap 300 MG PO TID peripheral neuropathy #93 CAP Continued Medications: Alprazolam (Alprazolam) 0.25 Mg Tab 0.25 MG PO Q4H PRN ANXIETY Ref 0 TAB Amlodipine (Amlodipine) 10 Mg Tab 10 MG PO DAILY Blood Pressure Management #30 Ref 0 TAB Atorvastatin (Atorvastatin) 20 Mg Tab 20 MG PO HS Cholesterol Management #30 Ref 0 TAB Cholecalciferol (D3 Maximum Strength) 5,000 Unit Cap UNITS PO EVERY OTHER DAY Nutritional Supplement #30 Ref 0 CAP Gemfibrozil (Gemfibrozil) 600 Mg Tab 600 MG PO BIDAC Take 30 minutes prior to breakfast and dinner. #60 Ref 0 TAB Glimepiride (Glimepiride) 2 Mg Tab 2 MG PO BIDAC Blood Sugar Management #60 Ref 0 TAB Lisinopril (Lisinopril) 20 Mg Tab 20 MG PO DAILY #30 Ref 0 TAB Metformin (Metformin) 850 Mg Tab 850 MG PO BIDPC With meals Blood Sugar Management Ref 0 TAB Janine Addison Sep 01, 2016 14:35
[2016-09-01 15:50] VITALS: BP 132/63; PULSE 99; RESP 20; TEMP 98.7; O2SAT 94
[2016-09-01] MEDS ORDERED: LEVOFLOXACIN 500 MG TAB PO ONE (16:00)
--- NOTE | 2016-09-01 16:50 | ECHRPT ---
Indication: CHF CONCLUSIONS Wall thickness is normal. The left ventricular systolic function is low normal with an estimated ejection fraction in the rang e of 50- 55%. Doppler parameters are consistent with impaired left ventricular relaxtion (grade 1 diastolic dysfun ction). BP: 157 / 71 HR: 96 Rhythm: MEASUREMENTS (Male / Female) Normal Values Technical Quality:Fair 2D ECHO LV Diastolic Diameter PLAX 5.4 cm 4.2 - 5.9 / 3.9 - 5.3 cm LV Systolic Diameter PLAX 4.6 cm IVS Diastolic Thickness 1.1 cm 0.6 - 1.0 / 0.6 - 0.9 cm LVPW Diastolic Thickness 1.5 cm 0.6 - 1.0 / 0.6 - 0.9 cm LV Relative Wall Thickness 0.5 M-MODE Aortic Root Diameter MM 3.3 cm LA Systolic Diameter MM 4.1 cm LA Ao Ratio MM 1.2 AV Cusp Separation MM 1.9 cm DOPPLER Mitral E Point Velocity 83.4 cm/s Mitral A Point Velocity 24.7 cm/s Mitral E to A Ratio 3.4 LV E' Lateral Velocity 5.5 cm/s Mitral E to LV E' Lateral Ratio 15.3 FINDINGS LEFT VENTRICLE Wall thickness is normal. The left ventricular systolic function is low normal with an estimated ejection fraction in the rang e of 50- 55%. Doppler parameters are consistent with impaired left ventricular relaxtion (grade 1 diastolic dysfun ction). RIGHT VENTRICLE Normal right ventricular size and systolic function. LEFT ATRIUM The left atrial size is normal. RIGHT ATRIUM The right atrial size is normal. ATRIAL SEPTUM Normal atrial septal thickness without atrial level shunting by limited color doppler interrogation. AORTA The aortic root and proximal ascending aorta are not well visualized. MITRAL VALVE Structurally normal mitral valve. No mitral valve stenosis or regurgitation. AORTIC VALVE Trileaflet aortic valve. No aortic valve stenosis or regurgitation. TRICUSPID VALVE Structurally normal tricuspid valve. No tricuspid valve stenosis or regurgitation. PULMONARY VALVE The pulmonary valve is not well visualized. VESSELS The inferior vena cava is normal in size. PERICARDIUM No pericardial effusion. Kuldeep Fields MD, FACC (Electronically Signed) Final Date:01 September 2016 16:48
[2016-09-02] MEDS ORDERED: GABAPENTIN 300 MG CAP PO SCH (09:00)
[2016-09-03] MEDS ORDERED: PHARMACY ORDERED LAB ONE (01:45)
== END 2016-09-01 17:15 | disposition home health service (06) | DRG 809 ==
LOC: NEPE 15:51 → NEDA 18:07 → HOCB 20:33
PROVIDERS: ADMIT Hospitalist; ATTEND Hospitalist
DX: D70.9 Neutropenia, unspecified (principal); I42.9 Cardiomyopathy, unspecified; N39.0 Urinary tract infection, site not specified; R50.81 Fever presenting with conditions classified elsewhere; C50.911 Malignant neoplasm of unspecified site of right female breast; B96.20 Unspecified Escherichia coli [E. coli] as the cause of diseases classified elsewhere; G62.9 Polyneuropathy, unspecified; T45.1X5A Adverse effect of antineoplastic and immunosuppressive drugs, initial encounter; R53.1 Weakness; I10 Essential (primary) hypertension; E11.9 Type 2 diabetes mellitus without complications; Z79.84 Long term (current) use of oral hypoglycemic drugs; Z92.21 Personal history of antineoplastic chemotherapy; E78.5 Hyperlipidemia, unspecified; Z88.0 Allergy status to penicillin
CPT/HCPCS: 80048; 80053; 80202; 81001; 82550; 82948; 83605; 85007; 85025; 85027; 87040; 87077; 87086; 87186; 93306; J1442; J1650; J1815; J1956; J2405; J3370; J7040; J7050

== ENCOUNTER 2016-09-16 06:31 | Day surgery (SDC) | payer MEDICARE ==
[~2016-09-16] VITALS: Ht 157.5 cm; Wt 86.0 kg
[~2016-09-16 06:31] MED LIST changes: +LEVO500T8 PO; +NEUR300C PO
[2016-09-16 07:00] VITALS: BP 117/53; PULSE 87; RESP 16; TEMP 97.9; O2SAT 97
[2016-09-16] MEDS ORDERED: POVIDONE IODINE 5% (ANTISEPSIS KIT) 4 APPLICATIONS EACH NARE SCH (07:15)
[2016-09-16] MEDS ORDERED: CHLORHEXIDINE GLUCONATE 2 % 1 PACK (2 CLOTHS) TOPICAL SCH (07:15)
[2016-09-16] MEDS ORDERED: SODIUM CHLORIDE 0.9% 1000 ML IV SCH (07:15)
[2016-09-16] MEDS ORDERED: LIDOCAINE 1%/EPINEPHrine 1:100,000 SOLN 20 ML VIAL ONE (08:26)
[2016-09-16 09:05] VITALS: BP 136/69; PULSE 81; RESP 20; TEMP 97.6; O2SAT 97
[2016-09-16 09:20] VITALS: BP 122/62; PULSE 82; RESP 18; O2SAT 94
--- NOTE | 2016-09-16 09:33 | PD.RAD ---
Post Procedure Progress Note Pre Procedure Diagnosis: (1) Breast CA Post Procedure Diagnosis: (1) Breast CA Procedure Date: Sep 16, 2016 Supervising Radiologist: Mg Olivier JR Proceduralist/Assist: Yaneth Aguilar, RT(R)(), Kelly Croft RT(R)() Anesthesia: Local Plan of Activity Patient to Unit: ROPU Patient Condition: Good See PACS Report for procedural detail/treatment Central Venous Access Device Procedure 1 Left Internal Jugular Infusaport Removal single lumen Findings: No signs of infection. Port removed without difficulty. Plan F/U with IR or a physician in 10-14 days for a site check Jr. Soy,Mg Shaikh MD Sep 16, 2016 09:33
[2016-09-16 10:19] LABS: APTT (PATIENT) 25.1 SEC (24.3-30.1); PROTHROMBIN TIME - PATIENT 11.4 SEC (9.8-11.6)
--- NOTE | 2016-09-16 12:06 | RADRPT ---
EXAM DATE/TIME: 09/16/2016 00:00 [facility] COMPARISON: No previous studies available for comparison. INDICATIONS : Patient with a history of breast cancer, port no longer needed. MEDICAL HISTORY : Arthritis Diabetes type II Hypercholesterolemia HTN Breast cancer SURGICAL HISTORY : Breast biopsy colonoscopy ENCOUNTER: Initial ACUITY: 7-11 months PAIN SCORE: 0/10 PROCEDURE : 1. Removal of [id number]. 2. Conscious sedation with continuous EKG and oximetry monitoring. The risk, benefits and potential complications of [id number] removal were discussed. Written conse nt was obtained. The patient was placed supine. The chest wall was prepped in sterile fashion. Full sterile techniqu e was used, including cap, mask, sterile gloves and gown, and a large sterile sheet. Hand hygiene an d 2% chlorhexidine and/or Betadine/alcohol prep was utilized per protocol for cutaneous antisepsis. The skin and subcutaneous tissues were infiltrated with local anesthetic solution. A small incision w as made, the subcutaneous pocket was opened. The port was dissected from the subcutaneous tissues and easily removed in one piece. The pocket incision was closed with subcuticular Vicryl suture. Steri -Strips were applied. Conscious sedation was performed with the prescribed dosages and duration as above in the presence of an independent trained radiology nurse to assist in the monitoring of the patient. EKG and oximetry remained stable throughout the procedure. The patient tolerated the procedure well and there were no complications. The patient was sent to post anesthesia recovery in stable condition. CONCLUSION: Uncomplicated port removal as above. Mg Olivier Jr., MD on September 16, 2016 at 12:04 Board Certified Radiologist. This report was verified electronically.
== END 2016-09-16 09:40 | disposition home or self-care (01) ==
LOC: HROP 06:31 → HRIP 06:38 → HROP 09:40
PROVIDERS: ATTEND Internal Medicine Hematology & Oncology
DX: Z85.3 Personal history of malignant neoplasm of breast (principal); I10 Essential (primary) hypertension; E78.00 Pure hypercholesterolemia, unspecified; E11.9 Type 2 diabetes mellitus without complications; M19.90 Unspecified osteoarthritis, unspecified site; Z01.812 Encounter for preprocedural laboratory examination
CPT/HCPCS: 36590; 85610; 85730

== ENCOUNTER 2017-09-30 06:25 | Inpatient (IN) ==
--- NOTE | 2017-09-30 07:04 | XR ---
EXAM DATE: 09/30/2017 6:57 AM EDT AGE/SEX: 72 years / Female INDICATIONS: Multiple falls. Left shoulder pain. CLINICAL DATA: This is the patient's initial encounter. Patient reports that signs and symptoms have been present for 1 day and indicates a pain score of 4/10. MEDICAL/SURGICAL HISTORY: . Carcinoma, breast. Diabetes mellitus type II. None. COMPARISON: [facility], SHOULDER LIMITED LEFT 2V, 09/24/2017. . FINDINGS: Redemonstrated comminuted fracture of the humeral head involving the greater tuberosity and surgical neck, as previously described. The lucency through the surgical neck is more conspicuous on the curre nt exam. The humeral head appears slightly inferiorly subluxed. Acromioclavicular joint is maintained . CONCLUSION: Redemonstrated comminuted humeral head fracture. Electronically signed by: Kaila Watkins MD 09/30/2017 7:03 AM EDT
--- NOTE | 2017-09-30 07:04 | XR ---
EXAM DATE: 09/30/2017 6:58 AM EDT AGE/SEX: 72 years / Female INDICATIONS: Multiple falls. Left shoulder pain. CLINICAL DATA: This is the patient's initial encounter. Patient reports that signs and symptoms have been present for 1 day and indicates a pain score of 5/10. MEDICAL/SURGICAL HISTORY: . Carcinoma, breast. Diabetes mellitus type II. None. [place] [facility] [place] 2[place]. . FINDINGS: There is a comminuted fracture of the proximal humerus involving the surgical neck, greater tuberosit y, and lesser tuberosity. The shaft of the humerus is intact. AC joint is intact. CONCLUSION: Comminuted proximal humeral fracture. Electronically signed by: Mg Borja MD 09/30/2017 7:03 AM EDT
[2017-09-30 08:20] LABS: Baso % (Auto) 0.5 % (0.0-2.0); Eos # (Auto) 0.1 th/mm3 (0.0-0.4); Hematocrit 27.6 % (35.0-46.0); Hemoglobin 9.4 gm/dL (11.6-15.3); Lymph # (Auto) 0.6 th/mm3 (1.0-4.8); Lymph % (Auto) 7.6 % (9.0-44.0); Mean Corpuscular Hemoglobin 31.2 pg (27.0-34.0); Mean Corpuscular Volume 91.7 fL (80.0-100.0); Mean Platelet Volume 9.1 fL (7.0-11.0); Mono # (Auto) 0.6 th/mm3 (0.0-0.9); Mono % (Auto) 7.3 % (0.0-8.0); Neut # (Auto) 6.4 th/mm3 (1.8-7.7); Neut % (Auto) 83.6 % (16.0-70.0); Platelet Count 225 th/mm3 (150-450); Red Blood Count 3.01 mil/mm3 (4.00-5.30); Red Cell Distribution Width 14.3 % (11.6-17.2); White Blood Count 7.7 th/mm3 (4.0-11.0)
[2017-09-30 08:31] LABS: Albumin 3.6 g/dL (3.4-5.0); Anion Gap 9 meq/L (5-15); Aspartate Aminotransferase 12 U/L (15-37); Blood Urea Nitrogen 36 mg/dL (7-18); Calcium 9.5 mg/dL (8.5-10.1); Carbon Dioxide 23.9 meq/L (21.0-32.0); Chloride 107 meq/L (98-107); Glomerular Filtration Rate 65 mL/min (>89); Glucose,Random 158 mg/dL (74-106); Potassium 4.4 meq/L (3.5-5.1); Sodium 140 meq/L (136-145)
[2017-09-30 08:39] LABS: Alanine Aminotransferase 17 U/L (10-53); Alkaline Phosphatase 132 U/L (45-117); Total Protein 7.6 g/dL (6.4-8.2)
[2017-09-30] MEDS ORDERED: Sod Chloride 0.9% Inj 1,000 ML IV.SIG ONE (09:28)
[2017-09-30 09:58] LABS: Bacteria,Urine Occasional /hpf; Bilirubin,Urine Negative (Negative); Clarity,Urine Hazy (Clear); Color,Urine Amber (Yellw/Straw); Glucose,Urine (UA) Negative (Negative); Leukocyte Esterase,Urine Large (Negative); Mucus,Urine Few /lpf (Occasional); Nitrite,Urine Negative (Negative); Specific Gravity,Urine 1.025 (1.002-1.035); Squamous Epithelial Cell,Urine 1 /hpf (0-5); Urobilinogen,Urine 4 or Greater mg/dL (Less than 2)
--- NOTE | 2017-09-30 12:19 | ED ---
HPI General Chief complaint: Fall Stated complaint: Fall Time Seen by Provider: 09/30/17 07:26 Source: patient Mode of arrival: ambulatory Limitations: no limitations History of Present Illness HPI narrative: Patient is a 72-year-old female who comes in after a fall. She fell several days ago and fractured her humerus. Since then she has fallen twice more onto her shoulder. She says her legs are weak and they just go out from under her. 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 She says she has feels overall generally weak. She she complains of pain to her left shoulder. She denies chest pain or shortness of breath. She denies hitting her head or any loss of consciousness. Severity is mild to moderate. Related Data Home Medications Medication Instructions Recorded Confirmed alprazolam [Xanax] 1 mg PO BID 09/30/17 09/30/17 amitriptyline 10 mg PO DAILY 09/30/17 09/30/17 amlodipine 10 mg PO DAILY 09/30/17 09/30/17 atorvastatin 20 mg PO DAILY 09/30/17 09/30/17 cyclobenzaprine 10 mg PO TID 09/30/17 09/30/17 ergocalciferol (vitamin D2) 50,000 unit PO QWEEK 09/30/17 09/30/17 [Vitamin D2] gabapentin 300 mg PO BID 09/30/17 09/30/17 gabapentin 600 mg PO DAILY 09/30/17 09/30/17 gemfibrozil 600 mg PO BID 09/30/17 09/30/17 lisinopril 20 mg PO BID 09/30/17 09/30/17 metformin 500 mg PO DAILY PRN 09/30/17 09/30/17 Allergies Allergy/AdvReac Type Severity Reaction Status Date / Time codeine Allergy Severe NAUSEA AND Verified 09/30/17 06:35 VOMITITNG penicillin G Allergy Severe HIVES, Verified 09/30/17 06:35 PROBLEMS BREATHING Sulfa (Sulfonamide Allergy Severe NAUSEA AND Verified 09/30/17 06:35 Antibiotics) VOMITING alendronate sodium tablet AdvReac Intermediate Nausea/Vomi Uncoded 09/30/17 06: 35 ting Doxycycline Hyclate tablet AdvReac Intermediate Nausea/Vomi Uncoded 09/30/17 06: 35 ting Nifedipine CR TB24 AdvReac Intermediate Nausea/Vomi Uncoded 09/30/17 06:35 ting Review of Systems Except as stated in HPI: all other systems reviewed are negative Constitutional Denies chills and Denies fever(s) ENT Denies dizziness Cardiovascular Denies chest pain and Denies dyspnea Respiratory Denies cough Gastrointestinal Denies nausea and Denies vomiting Musculoskeletal Reports arthralgias Integumentary/Breasts Denies lesions Neurologic Reports weakness PMFSH Medical History Medical History Breast cancer (Acute) Diabetes (Acute) H/O cholecystitis (Acute) High cholesterol (Acute) Hypertension (Acute) Neuropathy (Acute) Surgical History Surgical History H/O knee surgery (Acute) H/O lumpectomy (Acute) Social History Social History Substance History: No History of Abuse Second Hand Smoke Exposure: No Smoking Status: Never smoker How Often Do You Have a Drink Containing Alcohol: Never Recent Travel in [facility] within the Last 8 Weeks: No Recent Out of Country Travel within the Last 8 Weeks: No Immunization History Tetanus Immunization: Unsure Hx Influenza Vaccine This Season: Yes Exam Narrative Exam Narrative: GENERAL: [-] SKIN: Focused skin assessment warm/dry. HEAD: Atraumatic. Normocephalic. EYES: Pupils equal and round. No scleral icterus. No injection or drainage. ENT: No nasal bleeding or discharge. Mucous membranes pink and moist. NECK: Trachea midline. No JVD. CARDIOVASCULAR: Regular rate and rhythm. No murmur appreciated. RESPIRATORY: No accessory muscle use. Clear to auscultation. Breath sounds equal bilaterally. GASTROINTESTINAL: Abdomen soft, non-tender, nondistended. Hepatic and splenic margins not palpable. MUSCULOSKELETAL: No obvious deformities. No clubbing. No cyanosis. No edema. NEUROLOGICAL: Awake and alert. No obvious cranial nerve deficits. Motor grossly within normal limits. Normal speech. PSYCHIATRIC: Appropriate mood and affect; insight and judgment normal. Course Initial Documented Vital Signs Temperature 99.3 F 09/30/17 06:35 Pulse Rate 104 H 09/30/17 06:35 Respiratory Rate 24 09/30/17 06:35 Blood Pressure 152/74 H 09/30/17 06:35 Pulse Oximetry 97 09/30/17 06:35 Last Documented Vital Signs Temperature 97.8 F 09/30/17 07:49 Pulse Rate 97 H 09/30/17 11:00 Respiratory Rate 18 09/30/17 11:00 Blood Pressure 149/68 H 09/30/17 11:00 Pulse Oximetry 96 09/30/17 11:00 Medical Decision Making Lab Data Result diagrams: 09/30/17 07:45 09/30/17 07:45 Lab Results 09/30/17 09/30/17 09/30/17 Range/Units 07:45 07:45 09:20 WBC 7.7 (4.0-11.0) th/mm3 RBC 3.01 L (4.00-5.30) mil/mm3 Hgb 9.4 L (11.6-15.3) gm/dL Hct 27.6 L (35.0-46.0) % MCV 91.7 (80.0-100.0) fL MCH 31.2 (27.0-34.0) pg MCHC 34.0 (32.0-36.0) % RDW 14.3 (11.6-17.2) % Plt Count 225 (150-450) th/mm3 MPV 9.1 (7.0-11.0) fL Neut % (Auto) 83.6 H (16.0-70.0) % Lymph % (Auto) 7.6 L (9.0-44.0) % [place] % (Auto) 7.3 (0.0-8.0) % Eos % (Auto) 1.0 (0.0-4.0) % Baso % (Auto) 0.5 (0.0-2.0) % Neut # (Auto) 6.4 (1.8-7.7) th/mm3 Lymph # (Auto) 0.6 L (1.0-4.8) th/mm3 [place] # (Auto) 0.6 (0.0-0.9) th/mm3 Eos # (Auto) 0.1 (0.0-0.4) th/mm3 Baso # (Auto) 0.0 (0.0-0.2) th/mm3 WBC Differential . Differential Comment Auto diff final Sodium 140 (136-145) meq/L Potassium 4.4 (3.5-5.1) meq/L Chloride 107 (98-107) meq/L Carbon Dioxide 23.9 (21.0-32.0) meq/L Anion Gap 9 (5-15) meq/L BUN 36 H (7-18) mg/dL Creatinine 0.86 (0.50-1.00) mg/dL Estimated GFR 65 L (>89) mL/min Random Glucose 158 H (74-106) mg/dL Calcium 9.5 (8.5-10.1) mg/dL Total Bilirubin 1.3 H (0.2-1.0) mg/dL AST 12 L (15-37) U/L ALT 17 (10-53) U/L Alkaline Phosphatase 132 H (45-117) U/L Total Protein 7.6 (6.4-8.2) g/dL Albumin 3.6 (3.4-5.0) g/dL Urine Color Mabel (Yellw/Straw) Urine Clarity Hazy H (Clear) Urine pH 5.0 (5.0-8.5) Ur Specific [place] 1.025 (1.002-1.035) Urine Protein 30 H (Neg-Trace) mg/dL Urine Glucose (UA) Negative (Negative) mg/dL Urine Ketones Negative (Negative) mg/dL Urine Occult Blood Negative (Negative) Urine Nitrate Negative (Negative) Urine Bilirubin Negative (Negative) Urine Urobilinogen 4 or greater (Less than 2) mg/dL Ur Leukocyte Esterase Large H (Negative) Urine RBC 2 (0-3) /hpf Urine WBC 48 H (0-5) /hpf Ur Squamous Epith Cells 1 (0-5) /hpf Urine Bacteria Occasional H (None) /hpf Urine Mucus Few H (Occasional) /lpf Micro UA Comment Culture indicated Urine Culture Comments Culture indicated Imaging Data Radiologist's impression: Humerus X-Ray 09/30/17 06:33 CONCLUSION: Comminuted proximal humeral fracture. Shoulder X-Ray 09/30/17 06:33 CONCLUSION: Redemonstrated comminuted humeral head fracture. Discharge Plan Physicians Team ED Provider: Karishma Hernández Primary Care Provider: Praveena Godinez Rxs /Orders / Referrals /Forms Prescriptions: No Action cyclobenzaprine 10 mg Tablet 10 mg PO TID RF: 0 atorvastatin 20 mg Tablet 20 mg PO DAILY RF: 0 alprazolam [Xanax] 1 mg Tablet 1 mg PO BID RF: 0 lisinopril 20 mg Tablet 20 mg PO BID RF: 0 amitriptyline 10 mg Tablet 10 mg PO DAILY RF: 0 amlodipine 10 mg Tablet 10 mg PO DAILY RF: 0 gemfibrozil 600 mg Tablet 600 mg PO BID RF: 0 gabapentin 300 mg Capsule 600 mg PO DAILY RF: 0 gabapentin 300 mg Capsule 300 mg PO BID RF: 0 ergocalciferol (vitamin D2) [Vitamin D2] 50,000 unit Capsule 50,000 unit PO QWEEK RF: 0 metformin 500 mg Tablet Extended Release 24 Hr 500 mg PO DAILY PRN (Reason: Insomnia) RF: 0 Status ED Status: With Doctor
[2017-09-30] MEDS ORDERED: Acetaminophen 325 MG Tablet PO PRN (12:21)
[2017-09-30] MEDS ORDERED: HYDROmorphone PF Inj 0.5 MG/0.5 ML Syringe IV.PUSH PRN (12:26)
[2017-09-30] MEDS ORDERED: Dextrose 50% in Water 50 ML Vial IV.PUSH PRN (12:41)
--- NOTE | 2017-09-30 12:45 | P.HP ---
<Hillary Nelson - Last Filed: 09/30/17 18:03> History of Present Illness Primary Care Physician: Praveena Godinez MD Chief Complaint: frequent falls History of Present Illness: This is a 72 yo female medical history which includes breast cancer status post lumpectomy, chemotherapy and radiation completed April 2016, hypertension, diabetes mellitus, hyperlipidemia and cardiomyopathy. Patient reports that she initially fell last Tuesday09/24/17 and fractured her left humerus. Since then she has fallen twice more onto her shoulder. She says her legs are weak and they just go out from under her. She also reports that she has neuropathy from chemotherapy and has been unsteady on her feet since April 2016. She usually uses a walker at night but has not been able to use her walker do to her left humerus fracture. She also complains of pain to her left shoulder. She denies chest pain or shortness of breath. She denies hitting her head or any loss of consciousness. Past Medical History breast ca infected seroma breast right wrist fx's and surgery dm htn hyperlipidemia cardiomyopathy 40-45% per records Past surgical history right breast lumpectomy port placement. x 2 right wrist fx's and surgery Family History nc Social History no etoh/tob - Diagnosis (1) Fall PMFSH - History History Provided By: Patient - Medical History Medical History: Medical History (Last Reviewed 09/30/17 @ 12:23 by Karishma Hernández MD) Breast cancer Diabetes H/O cholecystitis High cholesterol Hypertension Neuropathy - Surgical History Surgical History: Surgical History (Last Reviewed 09/30/17 @ 12:23 by Karishma Hernández MD) H/O knee surgery H/O lumpectomy - Tobacco History Second Hand Smoke Exposure: No Smoking Status: Never smoker - Alcohol History How Often Do You Have a Drink Containing Alcohol: Never - Substance Use History Substance History: No History of Abuse - Travel History Recent Travel in the [place] Within the Last 8 Weeks: No Recent Travel Out of the Country Within the Last 8 Weeks: No - Immunization History Tetanus Immunization: Unsure Hx Influenza Vaccine This Season: Yes Medications and Allergies Allergies Allergy/AdvReac Type Severity Reaction Status Date / Time codeine Allergy Severe NAUSEA AND Verified 09/30/17 06:35 VOMITITNG penicillin G Allergy Severe HIVES, Verified 09/30/17 06:35 PROBLEMS BREATHING Sulfa (Sulfonamide Allergy Severe NAUSEA AND Verified 09/30/17 06:35 Antibiotics) VOMITING alendronate sodium tablet AdvReac Intermediate Nausea/Vomi Uncoded 09/30/17 06: 35 ting Doxycycline Hyclate tablet AdvReac Intermediate Nausea/Vomi Uncoded 09/30/17 06: 35 ting Nifedipine CR TB24 AdvReac Intermediate Nausea/Vomi Uncoded 09/30/17 06:35 ting Home Medications Medication Instructions Recorded Confirmed Type amlodipine 10 mg PO DAILY 09/30/17 09/30/17 History atorvastatin 20 mg PO DAILY 09/30/17 09/30/17 History ergocalciferol (vitamin D2) 50,000 unit PO QWEEK 09/30/17 09/30/17 History [Vitamin D2] gabapentin 300 mg PO BID 09/30/17 09/30/17 History gemfibrozil 600 mg PO BID 09/30/17 09/30/17 History lisinopril 20 mg PO BID 09/30/17 09/30/17 History metformin 500 mg PO BID 09/30/17 09/30/17 History Exam Vital signs: Vital Signs 09/30/17 06:35 09/30/17 06:43 09/30/17 07:49 Temperature 99.3 F 97.8 F Pulse Rate 104 H 102 H 103 H Respiratory Rate 24 16 18 Blood Pressure 152/74 H 143/67 H 133/71 Pulse Oximetry 97 97 99 09/30/17 11:00 Temperature Pulse Rate 97 H Respiratory Rate 18 Blood Pressure 149/68 H Pulse Oximetry 96 Intake & Output 09/29/17 09/30/17 09/30/17 18:59 06:59 18:59 Intake Total 1100 / 1100 Output Total 250 / 250 Balance 850 / 850 Weight 82.554 kg Intake: IV 1100 / 1100 NS Inj 1,000 ML @ Wide Open IV. 1000 / 1000 SIG BOLUS ONE Rx#:[id number] Rocephin Inj 1,000 MG In NS Inj 100 / 100 100 ML @ 200 mls/hr IV.SIG ONCE ONE Rx#:[id number] Output: Urine 250 / 250 Other: # Voids 1 Narrative: GENERAL: This is an obese 72 year old female who appears older than stated age, in no acute distress. CARDIOVASCULAR: Regular rate and rhythm without RESPIRATORY: Clear to auscultation. Breath sounds equal bilaterally. GASTROINTESTINAL: Abdomen soft, non-tender, nondistended. Normal active bowel sounds MUSCULOSKELETAL: Extremities without clubbing, cyanosis, or edema. NEURO: Alert & Oriented x4 to person, place, time, situation. Moves all ext x4 Results - Labs CBC & Chem 7: 09/30/17 07:45 09/30/17 07:45 Labs: Laboratory Results - last 24 hr 09/30/17 09/30/17 09/30/17 07:45 07:45 09:20 WBC 7.7 RBC 3.01 L Hgb 9.4 L Hct 27.6 L MCV 91.7 MCH 31.2 MCHC 34.0 RDW 14.3 Plt Count 225 MPV 9.1 Neut % (Auto) 83.6 H Lymph % (Auto) 7.6 L [place] % (Auto) 7.3 Eos % (Auto) 1.0 Baso % (Auto) 0.5 Neut # (Auto) 6.4 Lymph # (Auto) 0.6 L [place] # (Auto) 0.6 Eos # (Auto) 0.1 Baso # (Auto) 0.0 WBC Differential . Differential Comment Auto diff final Sodium 140 Potassium 4.4 Chloride 107 Carbon Dioxide 23.9 Anion Gap 9 BUN 36 H Creatinine 0.86 Estimated GFR 65 L Random Glucose 158 H Calcium 9.5 Total Bilirubin 1.3 H AST 12 L ALT 17 Alkaline Phosphatase 132 H Total Protein 7.6 Albumin 3.6 Urine Color Mabel Urine Clarity Hazy H Urine pH 5.0 Ur Specific [place] 1.025 Urine Protein 30 H Urine Glucose (UA) Negative Urine Ketones Negative Urine Occult Blood Negative Urine Nitrate Negative Urine Bilirubin Negative Urine Urobilinogen 4 or greater Ur Leukocyte Esterase Large H Urine RBC 2 Urine WBC 48 H Ur Squamous Epith Cells 1 Urine Bacteria Occasional H Urine Mucus Few H Micro UA Comment Culture indicated Urine Culture Comments Culture indicated - Imaging Impressions Humerus X-Ray 09/30/17 06:33 CONCLUSION: Comminuted proximal humeral fracture. Shoulder X-Ray 09/30/17 06:33 CONCLUSION: Redemonstrated comminuted humeral head fracture. Caprini VTE Risk Assessment Caprini VTE Risk Assessment: Moderate/High Risk (score >= 2) Caprini Risk Assessment Model: Point Value = 1 Point Value = 2 Point Value = 3 Point Value = 5 Age 41-60 Minor surgery BMI > 25 kg/m2 Swollen legs Varicose veins or History of unexplained or recurrent spontaneous Oral contraceptives or hormone replacement Sepsis (< 1 month) Serious lung disease, including pneumonia (< 1 month) Abnormal pulmonary function Acute myocardial infarction Congestive heart failure (< 1 month) History of inflammatory bowel disease Medical patient at bed rest Age 61-74 Arthroscopic surgery Major open surgery (> 45 min) Laparoscopic surgery (> 45 min) Malignancy Confined to bed (> 72 hours) Immobilizing plaster cast Central venous access Age >= 75 History of VTE Family history of VTE Factor V Leiden Prothrombin [id number] Lupus anticoagulant Anticardiolipin antibodies Elevated serum homocysteine Heparin-induced thrombocytopenia Other congenital or acquired thrombophilia Stroke (< 1 month) Elective arthroplasty Hip, pelvis, or leg fracture Acute spinal cord injury (< 1 month) Prophylaxis Regimen: Total Risk Factor Score Risk Level Prophylaxis Regimen 0-1 Low Early ambulation 2 Moderate Order ONE of the following: *Sequential Compression Device (SCD) *Heparin 5000 units SQ BID 3-4 Higher Order ONE of the following medications: *Heparin 5000 units SQ TID *Enoxaparin/Lovenox 40 mg SQ daily (WT < 150 kg, CrCl > 30 mL/min) *Enoxaparin/Lovenox 30 mg SQ daily (WT < 150 kg, CrCl > 10-29 mL/min) *Enoxaparin/Lovenox 30 mg SQ BID (WT < 150 kg, CrCl > 30 mL/min) AND/OR *Sequential Compression Device (SCD) 5 or more Highest Order ONE of the following medications: *Heparin 5000 units SQ TID (Preferred with Epidurals) *Enoxaparin/Lovenox 40 mg SQ daily (WT < 150 kg, CrCl > 30 mL/min) *Enoxaparin/Lovenox 30 mg SQ daily (WT < 150 kg, CrCl > 10-29 mL/min) *Enoxaparin/Lovenox 30 mg SQ BID (WT < 150 kg, CrCl > 30 mL/min) AND *Sequential Compression Device (SCD) Assessment and Plan - Assessment (1) Fall Code(s): W19.XXXA - Unspecified fall, initial encounter Status: Acute Plan: This is a 72 yo female medical history which includes breast cancer status post lumpectomy, chemotherapy and radiation completed April 2016, hypertension, diabetes mellitus, hyperlipidemia and cardiomyopathy. Patient reports that she initially fell last Tuesday09/24/17 and fractured her left humerus. Since then she has fallen twice more onto her shoulder. She says her legs are weak and they just go out from under her. She also reports that she has neuropathy from chemotherapy and has been unsteady on her feet since April 2016. She usually uses a walker at night but has not been able to use her walker do to her left humerus fracture. Fall with Comminuted proximal humeral fracture Weakness Humerus X-Ray reviewed and reveals: comminuted proximal humeral fracture. Shoulder X-Ray reviewed and: redemonstrated comminuted humeral head fracture. Patient was initially seen in the emergency department September 24, 2017 for fall with closed left humeral fracture patient has previously followed with orthopedic surgery on outpatient basis recommends sling and swath. Consult physical therapy Echocardiogram September 01, 2016 reviewed and reveals wall thickness is normal. The left ventricular systolic function is low normal with an ejection fraction in the range of 50-55%. Doppler parameters are consistent with impaired left ventricular relaxation grade 1 diastolic dysfunction. Repeat 2D echocardiogram CT head Ultrasound bilateral carotid arteries Check orthostatic vital signs Hold patient's home Xanax 1 mg p.o. twice daily, amitriptyline 10 mg p.o. daily , Flexeril 10 mg p.o. 3 times daily as these may be contributing to patient's frequent falls Reduce gabapentin to 300 mg twice daily in place of her home 300 mg 3 times daily this may also be contributing to patient's falls Possible urinary tract infection Urinalysis reviewed and reveals protein negative nitrates large amount of leukocyte esterase with occasional bacteria and few mucous Urine culture pending Patient given Rocephin IV by emergency department will continue await culture results for further antibiotic management DM (diabetes mellitus) Continue patient's home metformin 500 mg twice daily Accu-Cheks before meals at bedtime with sliding scale insulin coverage Diabetic diet HTN (hypertension) Continue patient's home amlodipine 10 mg p.o. daily and lisinopril 20 mg p.o. twice daily Monitor blood pressure trend Cardiomyopathy Echocardiogram September 01, 2016 reviewed and reveals wall thickness is normal. The left ventricular systolic function is low normal with an ejection fraction in the range of 50-55%. Doppler parameters are consistent with impaired left ventricular relaxation grade 1 diastolic dysfunction. We will repeat 2D echocardiogram Breast CA Status post lumpectomy with chemotherapy Consult to case management as patient will likely need SNF placement at discharge DVT prophylaxis with SCDs <Pawel Segura - Last Filed: 10/18/17 10:13> History of Present Illness Primary Care Physician: Praveena Godinez MD - Diagnosis (1) Fall Inpatient Certification: I certify that the inpatient services were ordered in accordance with Medicare regulations governing the order. This includes certification that hospital inpatient services are reasonable and necessary and in the case of services not specified as inpatient-only under 42 CFR 419.22(n), that they are appropriately provided as inpatient services in accordance to with the 2-midnight benchmark under 43 CFR 412.3(e) PMFSH - Medical History Medical History: Medical History (Last Reviewed 09/30/17 @ 12:23 by Karishma Hernández MD) Breast cancer Diabetes H/O cholecystitis High cholesterol Hypertension Neuropathy - Surgical History Surgical History: Surgical History (Last Reviewed 09/30/17 @ 12:23 by Karishma Hernández MD) H/O knee surgery H/O lumpectomy Results - Labs CBC & Chem 7: 10/02/17 11:15 10/01/17 06:54 Caprini VTE Risk Assessment Caprini Risk Assessment Model: Point Value = 1 Point Value = 2 Point Value = 3 Point Value = 5 Age 41-60 Minor surgery BMI > 25 kg/m2 Swollen legs Varicose veins or History of unexplained or recurrent spontaneous Oral contraceptives or hormone replacement Sepsis (< 1 month) Serious lung disease, including pneumonia (< 1 month) Abnormal pulmonary function Acute myocardial infarction Congestive heart failure (< 1 month) History of inflammatory bowel disease Medical patient at bed rest Age 61-74 Arthroscopic surgery Major open surgery (> 45 min) Laparoscopic surgery (> 45 min) Malignancy Confined to bed (> 72 hours) Immobilizing plaster cast Central venous access Age >= 75 History of VTE Family history of VTE Factor V Leiden Prothrombin [id number] Lupus anticoagulant Anticardiolipin antibodies Elevated serum homocysteine Heparin-induced thrombocytopenia Other congenital or acquired thrombophilia Stroke (< 1 month) Elective arthroplasty Hip, pelvis, or leg fracture Acute spinal cord injury (< 1 month) Prophylaxis Regimen: Total Risk Factor Score Risk Level Prophylaxis Regimen 0-1 Low Early ambulation 2 Moderate Order ONE of the following: *Sequential Compression Device (SCD) *Heparin 5000 units SQ BID 3-4 Higher Order ONE of the following medications: *Heparin 5000 units SQ TID *Enoxaparin/Lovenox 40 mg SQ daily (WT < 150 kg, CrCl > 30 mL/min) *Enoxaparin/Lovenox 30 mg SQ daily (WT < 150 kg, CrCl > 10-29 mL/min) *Enoxaparin/Lovenox 30 mg SQ BID (WT < 150 kg, CrCl > 30 mL/min) AND/OR *Sequential Compression Device (SCD) 5 or more Highest Order ONE of the following medications: *Heparin 5000 units SQ TID (Preferred with Epidurals) *Enoxaparin/Lovenox 40 mg SQ daily (WT < 150 kg, CrCl > 30 mL/min) *Enoxaparin/Lovenox 30 mg SQ daily (WT < 150 kg, CrCl > 10-29 mL/min) *Enoxaparin/Lovenox 30 mg SQ BID (WT < 150 kg, CrCl > 30 mL/min) AND *Sequential Compression Device (SCD) Assessment and Plan - Assessment (1) Fall Code(s): W19.XXXA - Unspecified fall, initial encounter Status: Acute - Attending Attestation Patient examined. Assessment and plan formulated with Hillary Nelson PA-C. I agree with the above. <Pawel Segura - Last Filed: 10/18/17 10:13> (1) Fall Qualifiers: Encounter type: subsequent encounter Qualified Code(s): W19.XXXD - Unspecified fall, subsequent encounter
[2017-09-30] MEDS: KCL 20 mEq/NACL 0.45% Inj 1,000 ML IV.CONT SCH (13:15)
--- NOTE | 2017-09-30 13:45 | XR ---
EXAM DATE: 09/30/2017 1:04 PM EDT AGE/SEX: 72 years / Female INDICATIONS: Pain in left shoulder from fall and cough. CLINICAL DATA: This is the patient's initial encounter. Patient reports that signs and symptoms have been present for 1 day and indicates a pain score of 9/10. MEDICAL/SURGICAL HISTORY: Hypertension. Arthritis. Diabetes type II. Hypercholesterolemia. Carc inoma, breast. . Breast biopsy. Colonoscopy. COMPARISON: No prior exams available for comparison. FINDINGS: A single AP view of the chest demonstrates the lungs to be symmetrically aerated without evidence of mass, infiltrate or effusion. The cardiomediastinal contours are unremarkable. Osseous structures a re intact. CONCLUSION: Negative examination. Electronically signed by: Vlad Santana MD 09/30/2017 1:44 PM EDT
[2017-09-30] MEDS: Insulin NovoLOG Aspart Correctional Sugar Inj SQ SCH ×2 (18:14→22:02)
[2017-09-30] MEDS: Lisinopril 20 MG Tablet PO SCH (21:21)
[2017-09-30] MEDS: Gemfibrozil 600 MG Tablet PO SCH (21:22)
[2017-09-30] MEDS: Senna/Docusate Sodium 8.6/50 MG Tablet PO SCH (21:22)
[2017-09-30] MEDS: Gabapentin 300 MG Capsule PO SCH (21:22)
[2017-10-01] MEDS: KCL 20 mEq/NACL 0.45% Inj 1,000 ML IV.CONT SCH (03:00)
[2017-10-01 07:13] LABS: Baso % (Auto) 0.7 % (0.0-2.0); Eos # (Auto) 0.1 th/mm3 (0.0-0.4); Eos % (Auto) 2.5 % (0.0-4.0); Hematocrit 25.1 % (35.0-46.0); Hemoglobin 8.5 gm/dL (11.6-15.3); Lymph # (Auto) 0.7 th/mm3 (1.0-4.8); Lymph % (Auto) 13.5 % (9.0-44.0); Mean Corpuscular HGB Conc 33.9 % (32.0-36.0); Mean Corpuscular Hemoglobin 30.6 pg (27.0-34.0); Mean Corpuscular Volume 90.3 fL (80.0-100.0); Mean Platelet Volume 8.7 fL (7.0-11.0); Mono # (Auto) 0.4 th/mm3 (0.0-0.9); Mono % (Auto) 8.5 % (0.0-8.0); Neut # (Auto) 3.6 th/mm3 (1.8-7.7); Neut % (Auto) 74.8 % (16.0-70.0); Platelet Count 182 th/mm3 (150-450); Red Blood Count 2.78 mil/mm3 (4.00-5.30); Red Cell Distribution Width 14.3 % (11.6-17.2); White Blood Count 4.8 th/mm3 (4.0-11.0)
[2017-10-01 07:51] LABS: Anion Gap 12 meq/L (5-15); Blood Urea Nitrogen 20 mg/dL (7-18); Calcium 8.8 mg/dL (8.5-10.1); Carbon Dioxide 22.1 meq/L (21.0-32.0); Chloride 108 meq/L (98-107); Glomerular Filtration Rate Greater Than 89 mL/min (>89); Glucose,Random 118 mg/dL (74-106); Potassium 3.9 meq/L (3.5-5.1); Sodium 142 meq/L (136-145)
--- NOTE | 2017-10-01 08:32 | CT ---
EXAM DATE: 10/01/2017 8:09 AM EDT AGE/SEX: 72 years / Female INDICATIONS: General weakness. CLINICAL DATA: This is the patient's initial encounter. Patient reports that signs and symptoms have been present for 1 day and indicates a pain score of 0/10. MEDICAL/SURGICAL HISTORY: Carcinoma, breast. Diabetes. Hypertension. None. RADIATION DOSE: 35.08 CTDI (mGy) COMPARISON: None . TECHNIQUE: CT of the head without contrast. Using automated exposure control and adjustment of the mA and/or kV according to patient size, radiation dose was kept as low as reasonably achievable to ob tain optimal diagnostic quality images. DICOM format image data is available electronically for revi ew and comparison. FINDINGS: Cerebrum: The ventricles are normal for age. No evidence of midline shift, mass lesion, hemorrhage or acute infarction. No extraaxial fluid collections are seen. Posterior Fossa: The cerebellum and brainstem are intact. The 4th ventricle is midline. The cerebe llopontine angle is unremarkable. Extracranial: The visualized portion of the orbits is intact. Skull: The calvaria is intact. No evidence of skull fracture. CONCLUSION: 1. Negative CT Head non contrast. . Electronically signed by: Amna Silva MD 10/01/2017 8:31 AM EDT
[2017-10-01] MEDS: amLODIPine 10 MG Tablet PO SCH (10:14)
[2017-10-01] MEDS: Insulin NovoLOG Aspart Correctional Sugar Inj SQ SCH ×3 (10:14→20:27)
[2017-10-01] MEDS: Gemfibrozil 600 MG Tablet PO SCH ×2 (10:14→20:24)
[2017-10-01] MEDS: Gabapentin 300 MG Capsule PO SCH ×2 (10:14→20:25)
[2017-10-01] MEDS: Senna/Docusate Sodium 8.6/50 MG Tablet PO SCH ×2 (10:15→20:25)
[2017-10-01] MEDS: Lisinopril 20 MG Tablet PO SCH ×2 (10:15→20:25)
--- NOTE | 2017-10-01 11:08 | P.DS ---
<Hillary Nelson W - Last Filed: 10/02/17 12:22> Date of admission: 09/30/17 12:32 Primary care physician: Praveena Godinez MD Attending physician on discharge: Pawel Segura Anticipated date of discharge: 10/02/17 Brief History from admission: This is a 72 yo female medical history which includes breast cancer status post lumpectomy, chemotherapy and radiation completed April 2016, hypertension, diabetes mellitus, hyperlipidemia and cardiomyopathy. Patient reports that she initially fell last Tuesday09/24/17 and fractured her left humerus. Since then she has fallen twice more onto her shoulder. She says her legs are weak and they just go out from under her. She also reports that she has neuropathy from chemotherapy and has been unsteady on her feet since April 2016. She usually uses a walker at night but has not been able to use her walker do to her left humerus fracture. She also complains of pain to her left shoulder. She denies chest pain or shortness of breath. She denies hitting her head or any loss of consciousness. Past Medical History breast ca infected seroma breast right wrist fx's and surgery dm htn hyperlipidemia cardiomyopathy 40-45% per records Past surgical history right breast lumpectomy port placement. x 2 right wrist fx's and surgery Family History nc Social History no etoh/tob DS: Diagnosis - Discharge Diagnosis (1) Fall Status: Acute DS: Medications - Discharge Medications Prescriptions: hydrocodone-acetaminophen [[place]] 1 tab PO Q6H PRN #90 tab PRN Reason: pain DS: Summary Hospital Course: This is a 72 yo female medical history which includes breast cancer status post lumpectomy, chemotherapy and radiation completed April 2016, hypertension, diabetes mellitus, hyperlipidemia and cardiomyopathy. Patient reports that she initially fell last Tuesday09/24/17 and fractured her left humerus. Since then she has fallen twice more onto her shoulder. She says her legs are weak and they just go out from under her. She also reports that she has neuropathy from chemotherapy and has been unsteady on her feet since April 2016. She usually uses a walker at night but has not been able to use her walker do to her left humerus fracture. Fall with Comminuted proximal humeral fracture Weakness Humerus X-Ray reviewed and reveals: comminuted proximal humeral fracture. Shoulder X-Ray reviewed and: redemonstrated comminuted humeral head fracture. Patient was initially seen in the emergency department September 24, 2017 for fall with closed left humeral fracture patient has previously followed with orthopedic surgery on outpatient basis recommends maximiliano and inge. Consult physical therapy, recommends rehab Echocardiogram September 01, 2016 reviewed and reveals wall thickness is normal. The left ventricular systolic function is low normal with an ejection fraction in the range of 50-55%. Doppler parameters are consistent with impaired left ventricular relaxation grade 1 diastolic dysfunction. 2D echocardiogram completed: The left ventricular systolic function is normal with an estimated ejection fraction in the range of 60-65%. Normal left ventricular size. Mild concentric left ventricular hypertrophy. No regional wall motion abnormalities are present. Mild mitral annular calcification. Diffuse calcification of the aortic valve. There is trace tricuspid valve regurgitation. Normal estimated pulmonary pressures. The pulmonary valve is not well visualized. CT head reviewed conclusion: Negative CT Head non contrast. Ultrasound bilateral carotid arteries reveals: 1. Right Internal Carotid Artery: No evidence of significant stenosis. 2. Left Internal Carotid Artery: No evidence of significant stenosis. Hold patient's home Xanax 1 mg p.o. twice daily, amitriptyline 10 mg p.o. daily , Flexeril 10 mg p.o. 3 times daily as these may be contributing to patient's frequent falls Reduce gabapentin to 300 mg twice daily in place of her home 300 mg 3 times daily this may also be contributing to patient's falls Possible urinary tract infection Urinalysis reviewed and reveals protein negative nitrates large amount of leukocyte esterase with occasional bacteria and few mucous Urine culture pending Patient given Rocephin IV by emergency department will continue await culture results for further antibiotic management DM (diabetes mellitus) Continue patient's home metformin 500 mg twice daily Accu-Cheks before meals at bedtime with sliding scale insulin coverage Diabetic diet HTN (hypertension) Continue patient's home amlodipine 10 mg p.o. daily and lisinopril 20 mg p.o. twice daily BP elevated as high as 223/128 (in speaking with the nurse this BP was taken on patient lower extremity with automated cuff) when rechecked with manual cuff on arm BP 138/64 with HR 90 to low 100s Repeat EKG reveals: SR with LBBB, previous EKG from 2013 in [facility] system reviewed also shows LBBB will add metoprolol 25 mg PO BID Anemia hgb on admission 9.4 -> 8.5 (10/01/17) -> 10.1 (10/02) likely due to dilution Cardiomyopathy Echocardiogram September 01, 2016 reviewed and reveals wall thickness is normal. The left ventricular systolic function is low normal with an ejection fraction in the range of 50-55%. Doppler parameters are consistent with impaired left ventricular relaxation grade 1 diastolic dysfunction. repeat 2D echocardiogram completed but not yet read Breast CA Status post lumpectomy with chemotherapy DVT prophylaxis with SCDs - Time Spent with Patient Total time spent providing and/or coordinating discharge services: Greater than 30 minutes - Quality: VTE Deep Vein Thrombosis/Pulmonary Embolism Present on Admission: No Exam Vital signs: Vital Signs 09/30/17 12:21 09/30/17 14:29 09/30/17 16:00 Temperature 98.1 F 98.0 F Pulse Rate 101 H 102 H 98 H Respiratory Rate 18 16 17 Blood Pressure 187/91 H 149/65 H 145/60 H Pulse Oximetry 97 97 98 09/30/17 20:00 10/01/17 00:00 10/01/17 08:00 Temperature 99 F 99 F 98.0 F Pulse Rate 105 H 96 H 91 H Respiratory Rate 17 16 14 Blood Pressure 151/69 H 142/66 H 149/66 H Pulse Oximetry 95 95 95 Intake & Output 09/30/17 10/01/17 10/01/17 18:59 06:59 18:59 Intake Total 1100 / 1100 1060 / 1060 Output Total 250 / 250 Balance 850 / 850 1060 / 1060 Weight 82.554 kg Intake: IV 1100 / 1100 1000 / 1000 Potassium Chlor 20 mEq/NACL 0. 1000 / 1000 45% Inj 1,000 ML @ 84 mls/hr IV .CONT .[id number] [facility] Rx#:[id number] NS Inj 1,000 ML @ Wide Open IV. 1000 / 1000 SIG BOLUS ONE Rx#:[id number] Rocephin Inj 1,000 MG In NS Inj 100 / 100 100 ML @ 200 mls/hr IV.SIG ONCE ONE Rx#:[id number] Oral 60 / 60 Output: Urine 250 / 250 Other: # Voids 2 2 Weight On Admission 82.554 kg Narrative: GENERAL: This is an obese 72 year old female who appears older than stated age, in no acute distress. CARDIOVASCULAR: Regular rate and rhythm without RESPIRATORY: Clear to auscultation. Breath sounds equal bilaterally. GASTROINTESTINAL: Abdomen soft, non-tender, nondistended. Normal active bowel sounds MUSCULOSKELETAL: Extremities without clubbing, cyanosis, or edema. NEURO: Alert & Oriented x4 to person, place, time, situation. Moves all ext x4 Results Procedures completed during hospitalization: None Labs on day of discharge: Labs from last 24 hours 10/01/17 10/01/17 10/01/17 07:50 06:54 06:51 WBC 4.8 RBC 2.78 L Hgb 8.5 L Hct 25.1 L MCV 90.3 MCH 30.6 MCHC 33.9 RDW 14.3 Plt Count 182 MPV 8.7 Neut % (Auto) 74.8 H Lymph % (Auto) 13.5 [place] % (Auto) 8.5 H Eos % (Auto) 2.5 Baso % (Auto) 0.7 Neut # (Auto) 3.6 Lymph # (Auto) 0.7 L [place] # (Auto) 0.4 Eos # (Auto) 0.1 Baso # (Auto) 0.0 WBC Differential . Differential Comment Auto diff final Sodium 142 Potassium 3.9 Chloride 108 H Carbon Dioxide 22.1 Anion Gap 12 BUN 20 H Creatinine 0.58 Estimated GFR Greater than 89 POC Glucose 133 H Random Glucose 118 H Calcium 8.8 09/30/17 09/30/17 21:23 17:04 WBC RBC Hgb Hct MCV MCH MCHC RDW Plt Count MPV Neut % (Auto) Lymph % (Auto) [place] % (Auto) Eos % (Auto) Baso % (Auto) Neut # (Auto) Lymph # (Auto) [place] # (Auto) Eos # (Auto) Baso # (Auto) WBC Differential Differential Comment Sodium Potassium Chloride Carbon Dioxide Anion Gap BUN Creatinine Estimated GFR POC Glucose 160 H 119 H Random Glucose Calcium - Impressions ITS Impressions Chest X-Ray 09/30/17 00:00 CONCLUSION: Negative examination. Humerus X-Ray 09/30/17 06:33 CONCLUSION: Comminuted proximal humeral fracture. Shoulder X-Ray 09/30/17 06:33 CONCLUSION: Redemonstrated comminuted humeral head fracture. Head CT 10/01/17 00:00 CONCLUSION: 1. Negative CT Head non contrast. . <Pawel Segura - Last Filed: 10/18/17 10:14> Date of admission: 09/30/17 12:32 Primary care physician: Praveena Godinez MD DS: Diagnosis - Discharge Diagnosis (1) Fall Status: Acute DS: Summary Hospital Course: Patient examined. Assessment and plan formulated with Hillary Nelson PA-C. I agree with the above. - Time Spent with Patient Total time spent providing and/or coordinating discharge services: Greater than 30 minutes Results - Impressions ITS Impressions Chest X-Ray 09/30/17 00:00 CONCLUSION: Negative examination. Humerus X-Ray 09/30/17 06:33 CONCLUSION: Comminuted proximal humeral fracture. Shoulder X-Ray 09/30/17 06:33 CONCLUSION: Redemonstrated comminuted humeral head fracture. Carotid Doppler Study 10/01/17 00:00 CONCLUSION: 1. Right Internal Carotid Artery: No evidence of significant stenosis. 2. Left Internal Carotid Artery: No evidence of significant stenosis. Head CT 10/01/17 00:00 CONCLUSION: 1. Negative CT Head non contrast. . Discharge Plan - Discharge Order Discharge Orders: Discharge Order (Routine); Ordered 10/02/17 Ordered By: Hillary Nelson - Discharge Details Anticipated Discharge Date: 10/02/17 - Physicians Team Primary Care Provider: Praveena Godinez Attending Provider: Pawel Segura
--- NOTE | 2017-10-01 12:23 | US ---
EXAM DATE: 10/01/2017 12:09 PM EDT AGE/SEX: 72 years / Female INDICATIONS: Weakness. Syncope. CLINICAL DATA: This is the patient's initial encounter. Patient reports that signs and symptoms have been present for 1 day and indicates a pain score of 0/10. MEDICAL/SURGICAL HISTORY: . Breast cancer. Hypertension. Diabetes. Hyperlipidemia. Cholecys titis. Neuropathy. Cardiomyopathy. Right wrist fracture. . Knee surgery. Lumpectomy 2017. Right wrist fracture surgery. COMPARISON: No prior exams available for comparison. VELOCITY PARAMETERS: ICA/CCA Ratio: Right 0.9 , Left 0.9 ICA: Right 69 cm/sec, Left 77 cm/sec CCA: Right 75 cm/sec, Left 89 cm/sec ECA: Right 86 cm/sec, Left 96 cm/sec Vertebral: Right 61 cm/sec antegrade, Left 72 cm/sec antegrade FINDINGS: Right Carotid: No significant plaque is visualized.The waveforms are within normal limits. Left Carotid: Mild arteriosclerotic plaque is visualized. The waveforms are within normal limits. Other: None. CONCLUSION: 1. Right Internal Carotid Artery: No evidence of significant stenosis. 2. Left Internal Carotid Artery: No evidence of significant stenosis. Electronically signed by: Amna Silva MD 10/01/2017 12:21 PM EDT
--- NOTE | 2017-10-01 13:32 | P.PNIM ---
Subjective Interval history: Follow up weakness and fall Patient reports feeling better today offers no new concerns/complaints Physical Exam Vital signs: Vital Signs 09/30/17 14:29 09/30/17 16:00 09/30/17 20:00 Temperature 98.1 F 98.0 F 99 F Pulse Rate 102 H 98 H 105 H Respiratory Rate 16 17 17 Blood Pressure 149/65 H 145/60 H 151/69 H Pulse Oximetry 97 98 95 10/01/17 00:00 10/01/17 08:00 10/01/17 12:00 Temperature 99 F 98.0 F 97.8 F Pulse Rate 96 H 91 H 98 H Respiratory Rate 16 14 14 Blood Pressure 142/66 H 149/66 H 223/128 H Pulse Oximetry 95 95 96 Intake & Output 09/30/17 10/01/17 10/01/17 18:59 06:59 18:59 Intake Total 1100 / 1100 1060 / 1060 Output Total 250 / 250 Balance 850 / 850 1060 / 1060 Weight 82.554 kg Intake: IV 1100 / 1100 1000 / 1000 Potassium Chlor 20 mEq/NACL 0. 1000 / 1000 45% Inj 1,000 ML @ 84 mls/hr IV .CONT .[id number] [facility] Rx#:[id number] NS Inj 1,000 ML @ Wide Open IV. 1000 / 1000 SIG BOLUS ONE Rx#:[id number] Rocephin Inj 1,000 MG In NS Inj 100 / 100 100 ML @ 200 mls/hr IV.SIG ONCE ONE Rx#:[id number] Oral 60 / 60 Output: Urine 250 / 250 Other: # Voids 2 2 Date of Last Bowel Movement 09/28/17 Weight On Admission 82.554 kg Narrative: GENERAL: This is an obese 72 year old female who appears older than stated age, in no acute distress. CARDIOVASCULAR: Regular rate and rhythm without RESPIRATORY: Clear to auscultation. Breath sounds equal bilaterally. GASTROINTESTINAL: Abdomen soft, non-tender, nondistended. Normal active bowel sounds MUSCULOSKELETAL: Extremities without clubbing, cyanosis, or edema. NEURO: Alert & Oriented x4 to person, place, time, situation. Moves all ext x4 Results - Labs CBC & Chem 7: 10/02/17 11:15 10/01/17 06:54 Laboratory Results - last 24 hr 09/30/17 09/30/17 10/01/17 17:04 21:23 06:51 WBC 4.8 RBC 2.78 L Hgb 8.5 L Hct 25.1 L MCV 90.3 MCH 30.6 MCHC 33.9 RDW 14.3 Plt Count 182 MPV 8.7 Neut % (Auto) 74.8 H Lymph % (Auto) 13.5 [place] % (Auto) 8.5 H Eos % (Auto) 2.5 Baso % (Auto) 0.7 Neut # (Auto) 3.6 Lymph # (Auto) 0.7 L [place] # (Auto) 0.4 Eos # (Auto) 0.1 Baso # (Auto) 0.0 WBC Differential . Differential Comment Auto diff final Sodium Potassium Chloride Carbon Dioxide Anion Gap BUN Creatinine Estimated GFR POC Glucose 119 H 160 H Random Glucose Calcium 10/01/17 10/01/17 10/01/17 06:54 07:50 12:22 WBC RBC Hgb Hct MCV MCH MCHC RDW Plt Count MPV Neut % (Auto) Lymph % (Auto) [place] % (Auto) Eos % (Auto) Baso % (Auto) Neut # (Auto) Lymph # (Auto) [place] # (Auto) Eos # (Auto) Baso # (Auto) WBC Differential Differential Comment Sodium 142 Potassium 3.9 Chloride 108 H Carbon Dioxide 22.1 Anion Gap 12 BUN 20 H Creatinine 0.58 Estimated GFR Greater than 89 POC Glucose 133 H 146 H Random Glucose 118 H Calcium 8.8 Microbiology 09/30/17 09:20 Clean Catch Urine Urine Culture - Final 50-100,000 cfu/mL mixed nicole (probable contaminants ) - Imaging Impressions Chest X-Ray 09/30/17 00:00 CONCLUSION: Negative examination. Carotid Doppler Study 10/01/17 00:00 CONCLUSION: 1. Right Internal Carotid Artery: No evidence of significant stenosis. 2. Left Internal Carotid Artery: No evidence of significant stenosis. Head CT 10/01/17 00:00 CONCLUSION: 1. Negative CT Head non contrast. . - Procedures None Assessment and Plan - Assessment (1) Fall Code(s): W19.XXXA - Unspecified fall, initial encounter Status: Acute Plan: This is a 72 yo female medical history which includes breast cancer status post lumpectomy, chemotherapy and radiation completed April 2016, hypertension, diabetes mellitus, hyperlipidemia and cardiomyopathy. Patient reports that she initially fell last Tuesday09/24/17 and fractured her left humerus. Since then she has fallen twice more onto her shoulder. She says her legs are weak and they just go out from under her. She also reports that she has neuropathy from chemotherapy and has been unsteady on her feet since April 2016. She usually uses a walker at night but has not been able to use her walker do to her left humerus fracture. Fall with Comminuted proximal humeral fracture Weakness Humerus X-Ray reviewed and reveals: comminuted proximal humeral fracture. Shoulder X-Ray reviewed and: redemonstrated comminuted humeral head fracture. Patient was initially seen in the emergency department September 24, 2017 for fall with closed left humeral fracture patient has previously followed with orthopedic surgery on outpatient basis recommends sling and swath. Consult physical therapy, recommends rehab Echocardiogram September 01, 2016 reviewed and reveals wall thickness is normal. The left ventricular systolic function is low normal with an ejection fraction in the range of 50-55%. Doppler parameters are consistent with impaired left ventricular relaxation grade 1 diastolic dysfunction. 2D echocardiogram completed: The left ventricular systolic function is normal with an estimated ejection fraction in the range of 60-65%. Normal left ventricular size. Mild concentric left ventricular hypertrophy. No regional wall motion abnormalities are present. Mild mitral annular calcification. Diffuse calcification of the aortic valve. There is trace tricuspid valve regurgitation. Normal estimated pulmonary pressures. The pulmonary valve is not well visualized. CT head reviewed conclusion: Negative CT Head non contrast. Ultrasound bilateral carotid arteries reveals: 1. Right Internal Carotid Artery: No evidence of significant stenosis. 2. Left Internal Carotid Artery: No evidence of significant stenosis. Hold patient's home Xanax 1 mg p.o. twice daily, amitriptyline 10 mg p.o. daily , Flexeril 10 mg p.o. 3 times daily as these may be contributing to patient's frequent falls Reduce gabapentin to 300 [address] twice daily in place of her home 300 mg 3 times daily this may also be contributing to patient's falls Possible urinary tract infection Urinalysis reviewed and reveals protein negative nitrates large amount of leukocyte esterase with occasional bacteria and few mucous Urine culture pending Patient given Rocephin IV by emergency department will continue await culture results for further antibiotic management DM (diabetes mellitus) Continue patient's home metformin 500 mg twice daily Accu-Cheks before meals at bedtime with sliding scale insulin coverage Diabetic diet HTN (hypertension) Continue patient's home amlodipine 10 mg p.o. daily and lisinopril 20 mg p.o. twice daily BP elevated as high as 223/128 (in speaking with the nurse this BP was taken on patient lower extremity with automated cuff) when rechecked with manual cuff on arm BP 138/64 with HR 90 to low 100s Repeat EKG reveals: SR with LBBB, previous EKG from 2013 in [facility] system reviewed also shows LBBB will add metoprolol 25 mg PO BID Anemia hgb on admission 9.4 -> 8.5 (10/01/17) likely due to dilution recheck CBC in AM Cardiomyopathy Echocardiogram September 01, 2016 reviewed and reveals wall thickness is normal. The left ventricular systolic function is low normal with an ejection fraction in the range of 50-55%. Doppler parameters are consistent with impaired left ventricular relaxation grade 1 diastolic dysfunction. repeat 2D echocardiogram completed but not yet read Breast CA Status post lumpectomy with chemotherapy Consult to case management as patient will likely need SNF placement at discharge DVT prophylaxis with SCDs Plan to DC to SNF tomorrow - Attending Attestation Patient examined. Assessment and plan formulated with Hillray Nelson PA-C. I agree with the above. (1) Fall Qualifiers: Encounter type: subsequent encounter Qualified Code(s): W19.XXXD - Unspecified fall, subsequent encounter
--- NOTE | 2017-10-01 13:37 | ECG ---
Date Performed: 10/01/2017 Time Performed: 12:58:59 PTAGE: 72 years EKG: Sinus rhythm MARKED LEFT AXIS DEVIATION LEFT BUNDLE BRANCH BLOCK ABNORMAL ECG Since the PREVIOUS TRACING , no significant change noted PREVIOUS TRACIN09/30/2017 15.35 DOCTOR: Vy Osei Interpretating Date/Time 10/01/2017 13:36:14
--- NOTE | 2017-10-01 13:38 | ECHRPT ---
Indication: HEART FAILURE CONCLUSIONS The left ventricular systolic function is normal with an estimated ejection fraction in the range of 60-65%. Normal left ventricular size. Mild concentric left ventricular hypertrophy. No regional wall motion abnormalities are present. Mild mitral annular calcification. Diffuse calcification of the aortic valve. There is trace tricuspid valve regurgitation. Normal estimated pulmonary pressures. The pulmonary valve is not well visualized. BP: / HR: Rhythm: Sinus MEASUREMENTS (Male / Female) Normal Values Technical Quality:Fair 2D ECHO LV Diastolic Diameter PLAX 3.3 cm 4.2 - 5.9 / 3.9 - 5.3 cm LV Systolic Diameter PLAX 2.3 cm IVS Diastolic Thickness 1.4 cm 0.6 - 1.0 / 0.6 - 0.9 cm LVPW Diastolic Thickness 1.3 cm 0.6 - 1.0 / 0.6 - 0.9 cm LV Relative Wall Thickness 0.8 RV Internal Dim ED PLAX 2.4 cm LVOT Diameter 2.0 cm LA Systolic Diameter LX 2.9 cm 3.0 - 4.0 / 2.7 - 3.8 cm M-MODE Aortic Root Diameter MM 1.9 cm AV Cusp Separation MM 1.8 cm DOPPLER AV Peak Velocity 125.0 cm/s AV Peak Gradient 6.3 mmHg LVOT Peak Velocity 90.3 cm/s LVOT Peak Gradient 3.3 mmHg AV Area Cont Eq pk 2.3 cm MV Area PHT 4.8 cm Mitral E Point Velocity 112.0 cm/s Mitral A Point Velocity 32.6 cm/s Mitral E to A Ratio 3.4 PV Peak Velocity 166.0 cm/s PV Peak Gradient 11.0 mmHg FINDINGS LEFT VENTRICLE The left ventricular systolic function is normal with an estimated ejection fraction in the range of 60-65%. Normal left ventricular size. Mild concentric left ventricular hypertrophy. No regional wall motion abnormalities are present. RIGHT VENTRICLE Normal right ventricular size and systolic function. LEFT ATRIUM The left atrial size is normal. RIGHT ATRIUM The right atrial size is normal. ATRIAL SEPTUM Normal atrial septal thickness without atrial level shunting by limited color doppler interrogation. AORTA The aortic root and proximal ascending aorta are normal in size on limited imaging. MITRAL VALVE Structurally normal mitral valve. Mild mitral annular calcification. AORTIC VALVE Trileaflet aortic valve. Diffuse calcification of the aortic valve. TRICUSPID VALVE Structurally normal tricuspid valve. There is trace tricuspid valve regurgitation. Normal estimated pulmonary pressures. PULMONARY VALVE The pulmonary valve is not well visualized. VESSELS The inferior vena cava is normal in size. PERICARDIUM No pericardial effusion. Jann Saleh MD, FACC, FSCAI (Electronically Signed) Final Date:01 October 2017 13:37
[2017-10-01] MEDS: Metoprolol Tartrate 25 MG Tablet PO SCH ×2 (13:53→20:25)
[2017-10-02] MEDS: amLODIPine 10 MG Tablet PO SCH (08:52)
[2017-10-02] MEDS: Gabapentin 300 MG Capsule PO SCH (08:52)
[2017-10-02] MEDS: Senna/Docusate Sodium 8.6/50 MG Tablet PO SCH (08:52)
[2017-10-02] MEDS: Metoprolol Tartrate 25 MG Tablet PO SCH (08:52)
[2017-10-02] MEDS: Lisinopril 20 MG Tablet PO SCH (08:52)
[2017-10-02] MEDS: Gemfibrozil 600 MG Tablet PO SCH (08:52)
[2017-10-02] MEDS: Insulin NovoLOG Aspart Correctional Sugar Inj SQ SCH ×2 (08:54→12:48)
--- NOTE | 2017-10-02 08:58 | ECG ---
Date Performed: 09/30/2017 Time Performed: 15:35:53 PTAGE: 72 years EKG: ATRIAL FLUTTER/TACHYCARDIA WITH RAPID VENTRICULAR RESPONSE INTRAVENTRICULAR CONDUCTION AILYN Y LATERAL MYOCARDIAL INFARCTION , PROBABLY RECENT INFERIOR MYOCARDIAL INFARCTION , OF INDETERMINATE A GE ACUTE MO is not excluded Compared to PREVIOUS TRACING , -new AF RVR -new LBBB PREVIOUS TRACIN10/21/1995 11.54 DOCTOR: Vy Osei Interpretating Date/Time 10/02/2017 08:58:22
[2017-10-02 12:19] LABS: Baso # (Auto) 0.1 th/mm3 (0.0-0.2); Baso % (Auto) 0.8 % (0.0-2.0); Eos # (Auto) 0.1 th/mm3 (0.0-0.4); Eos % (Auto) 2.1 % (0.0-4.0); Hematocrit 30.2 % (35.0-46.0); Hemoglobin 10.2 gm/dL (11.6-15.3); Lymph # (Auto) 0.6 th/mm3 (1.0-4.8); Lymph % (Auto) 9.2 % (9.0-44.0); Mean Corpuscular HGB Conc 33.6 % (32.0-36.0); Mean Corpuscular Hemoglobin 30.6 pg (27.0-34.0); Mean Corpuscular Volume 90.9 fL (80.0-100.0); Mono # (Auto) 0.5 th/mm3 (0.0-0.9); Mono % (Auto) 7.2 % (0.0-8.0); Neut # (Auto) 5.3 th/mm3 (1.8-7.7); Neut % (Auto) 80.7 % (16.0-70.0); Platelet Count 260 th/mm3 (150-450); Red Blood Count 3.33 mil/mm3 (4.00-5.30); Red Cell Distribution Width 14.5 % (11.6-17.2); White Blood Count 6.6 th/mm3 (4.0-11.0)
[2017-10-04 17:57] VITALS: BP 190/91; PULSE 103; O2SAT 97
[2017-10-04 18:12] VITALS: RESP 16; TEMP 97.2
== END 2017-10-02 17:05 ==
LOC: NEPE 06:25 → NEDA 12:32 → N06 13:53
PROVIDERS: ADMIT Hospitalist; ATTEND Hospitalist

== ENCOUNTER 2018-03-04 12:36 | Observation (INO) ==
[2018-03-04] MEDS ORDERED: Sod Chloride 0.9% Inj 1,000 ML IV.CONT SCH (13:00)
[2018-03-04] MEDS ORDERED: Tetanus/Diphtheria Toxoid Adult Vaccine Inj 0.5 ML Vial IM ONE (13:07)
--- NOTE | 2018-03-04 13:07 | ED ---
HPI General Chief Complaint: Fall Stated Complaint: Fall Time Seen by Provider: 03/04/18 12:49 Source: patient Mode of arrival: EMS Limitations: no limitations History of Present Illness HPI narrative: The patient is a 72-year-old female who presents to the emergency department via EMS after an apparent syncopal episode versus fall in the parking lot. The patient was at the dog track earlier today, was going to bet on the horses and have a hot dog with her friends, when she became lightheaded and apparently had a syncopal episode. The patient states she was lightheaded and the next thing she knew there were several people standing around her. The patient did complain of mild lightheadedness and dizziness, but denied any chest pain, palpitations, shortness of breath, nausea, or vomiting prior to this syncopal episode. The patient now complains of mild nausea and dizziness, with mild headache. The patient denies any current neck pain, chest pain, focal deficits, or abdominal pain. The patient denies taking any blood thinners. Symptoms are moderate. There are no current alleviating factors. The patient does states she has a history of chronic right breast pain secondary to surgery and nerve impingement. The patient states she has had significant pain at night for the last 3 nights and has had very little sleep, she believes this may have contributed to her syncopal episode. MD complaint: Reports loss of consciousness Onset (ago): minute(s) -: second(s) Prodromal symptoms: Reports headache and lightheaded Witnessed: yes - by bystander Context: Reports standing up Injuries sustained associated with event: Reports head Current symptoms: Reports lightheaded and nausea Treatments prior to arrival: Reports other Related Data Home Medications Medication Instructions Recorded Confirmed amlodipine 10 mg PO DAILY 09/30/17 03/04/18 atorvastatin 20 mg PO DAILY 09/30/17 03/04/18 ergocalciferol (vitamin D2) 50,000 unit PO QWEEK 09/30/17 03/04/18 [Vitamin D2] gabapentin 300 mg PO QID 09/30/17 03/04/18 gemfibrozil 600 mg PO BID 09/30/17 03/04/18 lisinopril 20 mg PO BID 09/30/17 03/04/18 metformin 500 mg PO BID 09/30/17 03/04/18 Allergies Allergy/AdvReac Type Severity Reaction Status Date / Time codeine Allergy Severe NAUSEA AND Verified 03/04/18 13:33 VOMITITNG penicillin G Allergy Severe HIVES, Verified 03/04/18 13:33 PROBLEMS BREATHING Sulfa (Sulfonamide Allergy Severe NAUSEA AND Verified 03/04/18 13:33 Antibiotics) VOMITING alendronate sodium tablet AdvReac Intermediate Nausea/Vomi Uncoded 03/04/18 13: 33 ting Doxycycline Hyclate tablet AdvReac Intermediate Nausea/Vomi Uncoded 03/04/18 13: 33 ting Nifedipine CR TB24 AdvReac Intermediate Nausea/Vomi Uncoded 03/04/18 13:33 ting Review of Systems ROS: all other systems reviewed are negative [facility] Medical History Medical History Breast cancer (Acute) Diabetes (Acute) H/O cholecystitis (Acute) High cholesterol (Acute) Hypertension (Acute) Neuropathy (Acute) Surgical History Surgical History H/O knee surgery (Acute) H/O lumpectomy (Acute) Social History Social History Substance History: No History of Abuse Second Hand Smoke Exposure: No Smoking Status: Never smoker Tobacco Type: Cigarettes How Often Do You Have a Drink Containing Alcohol: Never [facility] within the Last 8 Weeks: No Recent Out of Country Travel within the Last 8 Weeks: No Immunization History Tetanus Immunization: <5 Years Exam Narrative Exam Narrative: GENERAL: Awake, alert, pleasant 72-year-old female who appears her stated age and is in no acute respiratory distress. The patient initially is on a backboard with cervical collar in place. SKIN: Laceration to the mid occipital region with dried surrounding blood but no active bleeding. HEAD: Atraumatic. Normocephalic. EYES: Pupils equal and round. 3 mm bilateral and reactive. ENT: No nasal bleeding or discharge. Mucous membranes pink and moist. NECK: Trachea midline. No JVD. Cervical collar in place. CARDIOVASCULAR: Regular rate and rhythm. No murmur appreciated. Heart rate in the 90s. RESPIRATORY: No accessory muscle use. Clear to auscultation. Breath sounds equal bilaterally. GASTROINTESTINAL: Abdomen soft, non-tender, nondistended. No rebound tenderness. MUSCULOSKELETAL: No obvious deformities. No clubbing. No cyanosis. No edema. NEUROLOGICAL: Awake and alert. No obvious cranial nerve deficits. Motor grossly within normal limits. Normal speech. Nonfocal. Oriented x4. Follows commands without difficulty. Back: No tenderness over the thoracic or lumbar vertebrae. PSYCHIATRIC: Appropriate mood and affect; insight and judgment normal. Course Initial Documented Vital Signs Pulse Rate 109 H 03/04/18 12:48 Respiratory Rate 19 03/04/18 12:48 Pulse Oximetry 98 03/04/18 12:48 Last Documented Vital Signs Pulse Rate 96 H 03/04/18 17:05 Respiratory Rate 16 03/04/18 17:05 Blood Pressure 131/58 L 03/04/18 17:05 Pulse Oximetry 97 03/04/18 17:05 Medical Decision Making MDM Narrative Medical decision making narrative: IV was established, labs are drawn and sent, and the patient was placed on cardiac telemetry monitoring and continuous pulse oximetry monitoring. EKG was ordered and interpreted. The patient was logrolled off the backboard and the back was inspected. The patient was noted to have a laceration to the superior to mid occipital region, therefore, CT of the brain was obtained. The patient's tetanus shot was updated. The patient received IV fluids and Zofran. CT of the brain and cervical spine are negative , the cervical collar was removed. Laboratory evaluation is unremarkable. The patient was kept on telemetry monitoring, had a heart rate that varied between 80 and 105. The laceration was repaired by the mid-level provider, please refer to the procedure note. The patient appears to have had a true syncopal episode, therefore, will be a 23-hour observation for cardiac telemetry monitoring, she may benefit from echocardiogram and repeat orthostatic vital signs tomorrow. The patient's primary physician is Dr. Brush, [facility], therefore , the on-call [facility] physician was paged for 23-hour observation. I discussed the patient with Dr. Segura via phone, he states the patient was admitted in the summertime or syncope and had a thorough workup at that time which was unremarkable except for possible overmedication. I believe it is reasonable to just place the patient is a 23-hour observation for telemetry monitoring overnight, orthostatic vital signs in the morning, and if she is stable discharge home. Medical Screen Exam Complete: Yes Emergency Medical Condition: Yes Differential Diagnosis Differential Diagnosis: Differential diagnosis includes syncope, dysrhythmia, arrhythmia, mechanical fall, cardiogenic syncope, neurogenic syncope, vasovagal syncope, electrolyte abnormality, closed head injury, intracranial hemorrhage, cervical fracture. Lab Data Result diagrams: 03/04/18 13:14 03/04/18 13:14 Lab Results 03/04/18 03/04/18 03/04/18 Range/Units 13:14 13:14 13:14 WBC 4.0 (4.0-11.0) th/mm3 RBC 2.55 L (4.00-5.30) mil/mm3 Hgb 7.9 L (11.6-15.3) gm/dL Hct 23.3 L (35.0-46.0) % MCV 91.5 (80.0-100.0) fL MCH 31.1 (27.0-34.0) pg MCHC 34.0 (32.0-36.0) % RDW 16.5 (11.6-17.2) % Plt Count 138 L (150-450) th/mm3 MPV 9.1 (7.0-11.0) fL Neut % (Auto) 74.8 H (16.0-70.0) % Lymph % (Auto) 15.3 (9.0-44.0) % Bladen % (Auto) 7.3 (0.0-8.0) % Eos % (Auto) 2.0 (0.0-4.0) % Baso % (Auto) 0.6 (0.0-2.0) % Neut # (Auto) 3.0 (1.8-7.7) th/mm3 Lymph # (Auto) 0.6 L (1.0-4.8) th/mm3 Bladen # (Auto) 0.3 (0.0-0.9) th/mm3 Eos # (Auto) 0.1 (0.0-0.4) th/mm3 Baso # (Auto) 0.0 (0.0-0.2) th/mm3 WBC Differential . Differential Comment Auto diff final PT 11.4 (9.8-11.6) sec INR 1.1 Ratio APTT 24.6 (23.4-31.7) sec Sodium 147 H (136-145) meq/L Potassium 3.3 L (3.5-5.1) meq/L Chloride 120 H (98-107) meq/L Carbon Dioxide 16.7 L (21.0-32.0) meq/L Anion Gap 10 (5-15) meq/L BUN 22 H (7-18) mg/dL Creatinine 0.48 L (0.50-1.00) mg/dL Estimated GFR Greater than 89 (>89) mL/min Random Glucose 186 H (74-106) mg/dL Lactic Acid (0.4-2.0) mmol/L Calcium 5.8 L* (8.5-10.1) mg/dL Calcium Adj for Albumin 7.1 L* (8.5-10.1) mg/dL Magnesium 1.2 L (1.5-2.5) mg/dL Total Bilirubin 0.2 (0.2-1.0) mg/dL AST 14 L (15-37) U/L ALT 8 L (10-53) U/L Alkaline Phosphatase 95 (45-117) U/L Troponin I Less than 0.02 L (0.02-0.05) ng/mL B-Natriuretic Peptide (0-100) pg/mL Total Protein 4.8 L (6.4-8.2) g/dL Albumin 2.4 L (3.4-5.0) g/dL 03/04/18 03/04/18 Range/Units 13:14 14:50 WBC (4.0-11.0) th/mm3 RBC (4.00-5.30) mil/mm3 Hgb (11.6-15.3) gm/dL Hct (35.0-46.0) % MCV (80.0-100.0) fL MCH (27.0-34.0) pg MCHC (32.0-36.0) % RDW (11.6-17.2) % Plt Count (150-450) th/mm3 MPV (7.0-11.0) fL Neut % (Auto) (16.0-70.0) % Lymph % (Auto) (9.0-44.0) % Bladen % (Auto) (0.0-8.0) % Eos % (Auto) (0.0-4.0) % Baso % (Auto) (0.0-2.0) % Neut # (Auto) (1.8-7.7) th/mm3 Lymph # (Auto) (1.0-4.8) th/mm3 Bladen # (Auto) (0.0-0.9) th/mm3 Eos # (Auto) (0.0-0.4) th/mm3 Baso # (Auto) (0.0-0.2) th/mm3 WBC Differential Differential Comment PT (9.8-11.6) sec INR Ratio APTT (23.4-31.7) sec Sodium (136-145) meq/L Potassium (3.5-5.1) meq/L Chloride (98-107) meq/L Carbon Dioxide (21.0-32.0) meq/L Anion Gap (5-15) meq/L BUN (7-18) mg/dL Creatinine (0.50-1.00) mg/dL Estimated GFR (>89) mL/min Random Glucose (74-106) mg/dL Lactic Acid 1.7 (0.4-2.0) mmol/L Calcium (8.5-10.1) mg/dL Calcium Adj for Albumin (8.5-10.1) mg/dL Magnesium (1.5-2.5) mg/dL Total Bilirubin (0.2-1.0) mg/dL AST (15-37) U/L ALT (10-53) U/L Alkaline Phosphatase (45-117) U/L Troponin I (0.02-0.05) ng/mL B-Natriuretic Peptide 41 (0-100) pg/mL Total Protein (6.4-8.2) g/dL Albumin (3.4-5.0) g/dL Imaging Data Radiologist's impression: Cervical Spine CT 03/04/18 12:55 CONCLUSION: 1. No evidence of fracture. 2. Multilevel degenerative findings. Central canal diameter within normal limits at all levels. Chest X-Ray 03/04/18 12:55 CONCLUSION: No acute cardiopulmonary disease. Head CT 03/04/18 12:55 CONCLUSION: Scalp swelling and no evidence for intracranial hemorrhage. ECG Data EKG Prior to Arrival: No Attestation: I personally reviewed and interpreted this ECG as follows: Interpretation: EKG reveals normal sinus rhythm with a rate of 98. Left bundle branch block. Discharge Plan Discharge Disposition Patient Disposition: ED Admit(ED Internal Use Only) Discharge Condition Condition: Stable Discharge Details Diagnosis: Syncope, Closed head injury, Laceration Physicians Team ED Provider: Cesar Shelby Primary Care Provider: Praveena Godinez Rxs /Orders / Referrals /Forms Prescriptions: No Action atorvastatin 20 mg Tablet 20 mg PO DAILY RF: 0 lisinopril 20 mg Tablet 20 mg PO BID RF: 0 amlodipine 10 mg Tablet 10 mg PO DAILY RF: 0 gemfibrozil 600 mg Tablet 600 mg PO BID RF: 0 gabapentin 300 mg Capsule 300 mg PO QID RF: 0 ergocalciferol (vitamin D2) [Vitamin D2] 50,000 unit Capsule 50,000 unit PO QWEEK RF: 0 metformin 500 mg Tablet Extended Release 24 Hr 500 mg PO BID RF: 0 Status ED Status: Pending Admission
[2018-03-04 13:29] LABS: Baso % (Auto) 0.6 % (0.0-2.0); Eos # (Auto) 0.1 th/mm3 (0.0-0.4); Hematocrit 23.3 % (35.0-46.0); Hemoglobin 7.9 gm/dL (11.6-15.3); Lymph # (Auto) 0.6 th/mm3 (1.0-4.8); Lymph % (Auto) 15.3 % (9.0-44.0); Mean Corpuscular Hemoglobin 31.1 pg (27.0-34.0); Mean Corpuscular Volume 91.5 fL (80.0-100.0); Mean Platelet Volume 9.1 fL (7.0-11.0); Mono # (Auto) 0.3 th/mm3 (0.0-0.9); Mono % (Auto) 7.3 % (0.0-8.0); Neut % (Auto) 74.8 % (16.0-70.0); Platelet Count 138 th/mm3 (150-450); Red Blood Count 2.55 mil/mm3 (4.00-5.30); Red Cell Distribution Width 16.5 % (11.6-17.2)
[2018-03-04 13:37] LABS: Activated Partial Thrombo Time 24.6 sec (23.4-31.7); INR 1.1 Ratio; Prothrombin Time 11.4 sec (9.8-11.6)
--- NOTE | 2018-03-04 13:46 | XR ---
EXAM DATE: 03/04/2018 1:31 PM EST AGE/SEX: 72 years / Female INDICATIONS: Trauma. Post fall. CLINICAL DATA: This is the patient's initial encounter. Patient reports that signs and symptoms have been present for 1 day and indicates a pain score of Nonresponsive. MEDICAL/SURGICAL HISTORY: . Hypertension. Arthritis. Diabetes type II. Hypercholesterolemia. Ca rcinoma, breast. . Breast biopsy. Colonoscopy. [place] [facility] [place]. . FINDINGS: The lungs are clear without infiltrate, nodule, or mass. There is no appreciable pleural effusion for technique. Heart and mediastinum are unremarkable. CONCLUSION: No acute cardiopulmonary disease. Electronically signed by: Yadira Smalls MD Board Certified Radiologist 03/04/2018 1:44 PM EST
[2018-03-04 13:49] LABS: Alanine Aminotransferase 8 U/L (10-53); Albumin 2.4 g/dL (3.4-5.0); Alkaline Phosphatase 95 U/L (45-117); Anion Gap 10 meq/L (5-15); Aspartate Aminotransferase 14 U/L (15-37); Blood Urea Nitrogen 22 mg/dL (7-18); Calcium 5.8 mg/dL (8.5-10.1); Carbon Dioxide 16.7 meq/L (21.0-32.0); Chloride 120 meq/L (98-107); Glomerular Filtration Rate Greater Than 89 mL/min (>89); Glucose,Random 186 mg/dL (74-106); Magnesium 1.2 mg/dL (1.5-2.5); Potassium 3.3 meq/L (3.5-5.1); Sodium 147 meq/L (136-145); Total Protein 4.8 g/dL (6.4-8.2)
[2018-03-04] MEDS: Mag Sulf 1 gm/100 ml Premix 100 ML IV.SIG SCH ×2 (15:10→16:18)
--- NOTE | 2018-03-04 16:29 | CT ---
EXAM DATE: 03/04/2018 4:20 PM EST AGE/SEX: 72 years / Female INDICATIONS: Trauma, fall. Hit back of head. CLINICAL DATA: This is the patient's initial encounter. Patient reports that signs and symptoms have been present for 1 day and indicates a pain score of Nonresponsive. MEDICAL/SURGICAL HISTORY: Carcinoma, breast. Hypertension. Diabetes. Cholecystectomy. RADIATION DOSE: 39.88 CTDI (mGy) [place] [facility] [place] [place]01/2017. . TECHNIQUE: CT of the head without contrast. Using automated exposure control and adjustment of the mA and/or kV according to patient size, radiation dose was kept as low as reasonably achievable to ob tain optimal diagnostic quality images. DICOM format image data is available electronically for revi ew and comparison. FINDINGS: There is no evidence for intracranial hemorrhage, mass effect, mass lesions, or edema. The visualize d bony structures appear intact. Slight degree of brain atrophy is seen. Slight periventricular whit e matter changes are seen nonspecific mostly consistent with chronic small vessel ischemic changes. There are no signs of acute infarction for technique. There is chronic sinusitis within the left obdulia l sinus./Scalp swelling is seen in the left posterior high convexity occipital region. CONCLUSION: Scalp swelling and no evidence for intracranial hemorrhage. Electronically signed by: Yadira Smalls MD Board Certified Radiologist 03/04/2018 4:28 PM EST
--- NOTE | 2018-03-04 16:38 | CT ---
EXAM DATE: 03/04/2018 4:27 PM EST AGE/SEX: 72 years / Female INDICATIONS: Trauma, fall. Hit back of head. CLINICAL DATA: This is the patient's initial encounter. Patient reports that signs and symptoms have been present for 1 day and indicates a pain score of 6/10. MEDICAL/SURGICAL HISTORY: Carcinoma, breast. Hypertension. Diabetes. Cholecystectomy. RADIATION DOSE: 21.79 CTDI (mGy) COMPARISON: No prior exams available for comparison. TECHNIQUE: Contiguous axial images were obtained using helical multirow detector technique. The vol umetric data was post-processed with multiplanar reconstruction in oblique axial, sagittal, and coron al planes. Using automated exposure control and adjustment of the mA and/or kV according to patient s ize, radiation dose was kept as low as reasonably achievable to obtain optimal diagnostic quality yuly ges. DICOM format image data is available electronically for review and comparison. FINDINGS: Vertebrae: Normal vertebral body height. Alignment: Normal. No subluxation. C2-3: Central canal diameter within normal limits. Neural foraminal diameters within normal limits. C3-4: Left-sided facet arthrosis. Central canal diameter within normal limits. Neural foraminal diam eters within normal limits. C4-5: Mild bilateral facet arthrosis. Central canal diameter within normal limits. Neural foraminal diameters within normal limits. C5-6: Prominent left-sided facet arthrosis and broad-based disc osteophyte complex. Mild left neural foraminal narrowing. Central canal diameter within normal limits. C6-7: No evidence of focal disc protrusion. Central canal diameter within normal limits. Neural fora angie diameters within normal limits. C7-T1: Central canal diameter within normal limits. Neural foraminal diameters within normal limits. CONCLUSION: 1. No evidence of fracture. 2. Multilevel degenerative findings. Central canal diameter within normal limits at all levels. Electronically signed by: Vlad Santana MD Board Certified Radiologist 03/04/2018 4:37 PM EST
[2018-03-04] MEDS ORDERED: Acetaminophen 325 MG Tablet PO PRN ×2 (17:16→23:15)
[2018-03-04 17:55] LABS: Reticulocyte Percent 3.5 % (0.4-3.0)
[2018-03-04] MEDS: KCL 20 mEq/NACL 0.45% Inj 1,000 ML IV.CONT SCH (18:13)
[2018-03-04 18:56] LABS: % Iron Saturation 20.4 % (20-50); Folate 9.7 ng/mL (3.1-17.5)
[2018-03-05] MEDS: KCL 20 mEq/NACL 0.45% Inj 1,000 ML IV.CONT SCH (05:19)
[2018-03-05 06:09] LABS: Baso % (Auto) 0.6 % (0.0-2.0); Eos # (Auto) 0.1 th/mm3 (0.0-0.4); Eos % (Auto) 1.7 % (0.0-4.0); Hematocrit 28.8 % (35.0-46.0); Lymph # (Auto) 0.7 th/mm3 (1.0-4.8); Lymph % (Auto) 11.3 % (9.0-44.0); Mean Corpuscular HGB Conc 34.6 % (32.0-36.0); Mean Corpuscular Hemoglobin 30.8 pg (27.0-34.0); Mean Platelet Volume 8.8 fL (7.0-11.0); Mono # (Auto) 0.4 th/mm3 (0.0-0.9); Mono % (Auto) 6.7 % (0.0-8.0); Neut # (Auto) 5.1 th/mm3 (1.8-7.7); Neut % (Auto) 79.7 % (16.0-70.0); Platelet Count 193 th/mm3 (150-450); Red Blood Count 3.24 mil/mm3 (4.00-5.30); Red Cell Distribution Width 15.9 % (11.6-17.2); White Blood Count 6.4 th/mm3 (4.0-11.0)
[2018-03-05 06:32] LABS: Calcium 8.8 mg/dL (8.5-10.1); Carbon Dioxide 20.8 meq/L (21.0-32.0); Magnesium 2.2 mg/dL (1.5-2.5); Potassium 4.6 meq/L (3.5-5.1)
[2018-03-05 08:11] VITALS: RESP 20
[2018-03-05] MEDS: Gabapentin 300 MG Capsule PO SCH ×2 (09:27→14:22)
--- NOTE | 2018-03-05 10:42 | P.HPIM ---
History of Present Illness Primary Care Physician: Praveena Godinez MD History of Present Illness: This is a 72 yo female medical history which includes breast cancer status post lumpectomy, chemotherapy and radiation completed April 2016, hypertension, diabetes mellitus, hyperlipidemia and cardiomyopathy. Patient presented to the emergency department via EMS after an apparent syncopal episode versus fall in the parking lot. The patient was at the dog track earlier today, was going to bet on the horses and have a hot dog with her friends, when she became lightheaded and apparently had a syncopal episode. The patient states she was lightheaded and the next thing she knew there were several people standing around her. The patient did complain of mild lightheadedness and dizziness, but denied any chest pain, palpitations, shortness of breath, nausea, or vomiting prior to this syncopal episode. On arrival to the ER random glucose 186. The patient denies any current neck pain , chest pain, focal deficits, or abdominal pain. The patient does states she has a history of chronic right breast pain secondary to surgery and nerve impingement. The patient states she has had significant pain at night for the last 3 nights and has had very little sleep, she believes this may have contributed to her syncopal episode. Patient also had syncopal episodes 09/2017 which was thought to be due to polypharmacy. Past Medical History breast ca infected seroma breast right wrist fx's and surgery dm htn hyperlipidemia cardiomyopathy 40-45% per records Past surgical history right breast lumpectomy port placement. x 2 right wrist fx's and surgery Family History nc Social History no etoh/tob Medications and Allergies Allergies Allergy/AdvReac Type Severity Reaction Status Date / Time codeine Allergy Severe NAUSEA AND Verified 03/04/18 13:33 VOMITITNG penicillin G Allergy Severe HIVES, Verified 03/04/18 13:33 PROBLEMS BREATHING Sulfa (Sulfonamide Allergy Severe NAUSEA AND Verified 03/04/18 13:33 Antibiotics) VOMITING alendronate sodium tablet AdvReac Intermediate Nausea/Vomi Uncoded 03/04/18 13: 33 ting Doxycycline Hyclate tablet AdvReac Intermediate Nausea/Vomi Uncoded 03/04/18 13: 33 ting Nifedipine CR TB24 AdvReac Intermediate Nausea/Vomi Uncoded 03/04/18 13:33 ting Home Medications Medication Instructions Recorded Confirmed Type amlodipine 10 mg PO DAILY 09/30/17 03/04/18 History atorvastatin 20 mg PO DAILY 09/30/17 03/04/18 History ergocalciferol (vitamin D2) 50,000 unit PO QWEEK 09/30/17 03/04/18 History [Vitamin D2] gabapentin 300 mg PO QID 09/30/17 03/04/18 History gemfibrozil 600 mg PO BID 09/30/17 03/04/18 History lisinopril 20 mg PO BID 09/30/17 03/04/18 History metformin 500 mg PO BID 09/30/17 03/04/18 History clopidogrel 75 mg PO DAILY 03/04/18 03/04/18 History glipizide 5 mg PO DAILY 03/04/18 03/04/18 History potassium chloride 10 meq PO DAILY 03/04/18 03/04/18 History simvastatin 40 mg PO QPM 03/04/18 03/04/18 History Active Medications: Active Medications Acetaminophen (Tylenol) 650 mg PO Q4H PRN PRN Reason: Temp > 100.4 Acetaminophen (Tylenol) 650 mg PO Q6H PRN PRN Reason: PAIN SCALE 1 TO 10 Last Admin: 03/04/18 23:20 Dose: 650 mg Gabapentin (Neurontin) 300 mg PO QID [facility] Last Admin: 03/05/18 09:27 Dose: 300 mg Ondansetron HCl (Zofran Inj) 4 mg IV.PUSH Q6H PRN PRN Reason: NAUSEA OR VOMITING Sodium Chloride (Ns Flush) 2 ml IV.FLUSH PRN PRN PRN Reason: FLUSH AFTER USING IV ACCESS Sodium Chloride (Ns Flush) 2 ml IV.FLUSH BID [facility] Last Admin: 03/05/18 09:27 Dose: 2 ml Physical Exam Vital signs: Last Vital Signs Temp 99.1 F 03/05/18 08:00 Pulse 94 H 03/05/18 08:00 Resp 20 03/05/18 08:00 BP 105/53 L 03/05/18 08:00 Pulse Ox 20 L 03/05/18 08:00 Narrative: GENERAL: This is a well-nourished, well-developed patient, in no apparent distress. CARDIOVASCULAR: Regular rate and rhythm RESPIRATORY: Clear to auscultation. Breath sounds equal bilaterally. GASTROINTESTINAL: Abdomen soft, non-tender, nondistended. Normal active bowel sounds MUSCULOSKELETAL: Extremities without clubbing, cyanosis, or edema. NEURO: Alert & Oriented x4 to person, place, time, situation. Moves all ext x4 Results Labs CBC & Chem 7: 03/05/18 05:09 03/05/18 05:09 Caprini VTE Risk Assessment Caprini VTE Risk Assessment: No/Low Risk (score <= 1) Caprini Risk Assessment Model: Point Value = 1 Point Value = 2 Point Value = 3 Point Value = 5 Age 41-60 Minor surgery BMI > 25 kg/m2 Swollen legs Varicose veins or History of unexplained or recurrent spontaneous Oral contraceptives or hormone replacement Sepsis (< 1 month) Serious lung disease, including pneumonia (< 1 month) Abnormal pulmonary function Acute myocardial infarction Congestive heart failure (< 1 month) History of inflammatory bowel disease Medical patient at bed rest Age 61-74 Arthroscopic surgery Major open surgery (> 45 min) Laparoscopic surgery (> 45 min) Malignancy Confined to bed (> 72 hours) Immobilizing plaster cast Central venous access Age >= 75 History of VTE Family history of VTE Factor V Leiden Prothrombin [id number] Lupus anticoagulant Anticardiolipin antibodies Elevated serum homocysteine Heparin-induced thrombocytopenia Other congenital or acquired thrombophilia Stroke (< 1 month) Elective arthroplasty Hip, pelvis, or leg fracture Acute spinal cord injury (< 1 month) Prophylaxis Regimen: Total Risk Factor Score Risk Level Prophylaxis Regimen 0-1 Low Early ambulation 2 Moderate Order ONE of the following: *Sequential Compression Device (SCD) *Heparin 5000 units SQ BID 3-4 Higher Order ONE of the following medications: *Heparin 5000 units SQ TID *Enoxaparin/Lovenox 40 mg SQ daily (WT < 150 kg, CrCl > 30 mL/min) *Enoxaparin/Lovenox 30 mg SQ daily (WT < 150 kg, CrCl > 10-29 mL/min) *Enoxaparin/Lovenox 30 mg SQ BID (WT < 150 kg, CrCl > 30 mL/min) AND/OR *Sequential Compression Device (SCD) 5 or more Highest Order ONE of the following medications: *Heparin 5000 units SQ TID (Preferred with Epidurals) *Enoxaparin/Lovenox 40 mg SQ daily (WT < 150 kg, CrCl > 30 mL/min) *Enoxaparin/Lovenox 30 mg SQ daily (WT < 150 kg, CrCl > 10-29 mL/min) *Enoxaparin/Lovenox 30 mg SQ BID (WT < 150 kg, CrCl > 30 mL/min) AND *Sequential Compression Device (SCD) Assessment and Plan Plan Syncopal episode, unclear etiology Cervical Spine CT 03/04/18 1. No evidence of fracture. 2. Multilevel degenerative findings. Central canal diameter within normal limits at all levels. Chest X-Ray 03/04/18 No acute cardiopulmonary disease. Head CT 03/04/18 Scalp swelling and no evidence for intracranial hemorrhage. 2D echocardiogram 10/01/17: The left ventricular systolic function is normal with an estimated ejection fraction in the range of 60-65%. Normal left ventricular size. Mild concentric left ventricular hypertrophy. No regional wall motion abnormalities are present. Mild mitral annular calcification. Diffuse calcification of the aortic valve. There is trace tricuspid valve regurgitation. Normal estimated pulmonary pressures. The pulmonary valve is not well visualized. Ultrasound bilateral carotid arteries 09/2017: 1. Right Internal Carotid Artery: No evidence of significant stenosis. 2. Left Internal Carotid Artery: No evidence of significant stenosis. Continuous telemetry Orthostatic vital signs 134/63 HR 105 bpm laying, 130/59 HR 110bpm sitting, 124/ 57 HR 113bpm standing Patient insist that this episode was related to lack of sleep due to pain in right breast. Patient requesting to go home. Patient to follow up with PCP, Dr. River and referred to pain management Dr. Praveena Nam DM (diabetes mellitus) Continue patient's home metformin 500 mg twice daily Accu-Cheks before meals at bedtime with sliding scale insulin coverage Diabetic diet HTN (hypertension) Continue patient's home amlodipine 10 mg p.o. daily and lisinopril 20 mg p.o. twice daily monitor BP Anemia resolved hgb on admission 7.9 -> 10.0 (03/05/18) Hgb increased with no treatment ? lab error Breast CA Status post lumpectomy with chemotherapy DVT prophylaxis with SCDs DC patient home in stable condition on a diabetic diet with activity as tolerated No changes in medication Patient to follow up with PCP, Dr. River and referred to pain management Dr. Praveena Nam H&P: Quality VTE Deep Vein Thrombosis/Pulmonary Embolism Present on Admission: No
[2018-03-05 12:00] VITALS: O2SAT 95
--- NOTE | 2018-03-05 14:52 | ECG ---
Date Performed: 03/04/2018 Time Performed: 13:07:41 PTAGE: 72 years EKG: Sinus rhythm MARKED LEFT AXIS DEVIATION LEFT BUNDLE BRANCH BLOCK ABNORMAL ECG Since PREVIOUS TRACING , no significant change noted PREVIOUS TRACIN10/01/2017 12.58 DOCTOR: Jonathan Tucker Interpretating Date/Time 03/05/2018 14:50:50
[2018-03-05 15:53] VITALS: BP 122/56; PULSE 111; TEMP 98.5
== END 2018-03-05 15:30 | disposition home or self-care (01) ==
LOC: NEDA 12:36 → NEPE 12:36 → NEPHCDU 20:30
PROVIDERS: ADMIT Hospitalist; ATTEND Hospitalist
DX: Z79.84 Long term (current) use of oral hypoglycemic drugs; Z79.899 Other long term (current) drug therapy; E78.00 Pure hypercholesterolemia, unspecified; I10 Essential (primary) hypertension; G62.9 Polyneuropathy, unspecified; E11.9 Type 2 diabetes mellitus without complications; C50.919 Malignant neoplasm of unspecified site of unspecified female breast; F17.210 Nicotine dependence, cigarettes, uncomplicated; R55 Syncope and collapse; D64.9 Anemia, unspecified; E78.5 Hyperlipidemia, unspecified; Z92.3 Personal history of irradiation; S09.90XA Unspecified injury of head, initial encounter; S01.91XA Laceration without foreign body of unspecified part of head, initial encounter; Z88.2 Allergy status to sulfonamides; Z88.5 Allergy status to narcotic agent
CPT/HCPCS: 12001; 70450; 71010; 71045; 72125; 80048; 80053; 82607; 82728; 82746; 83520; 83540; 83550; 83605; 83735; 83880; 84484; 85025; 85044; 85610; 85730; 90471; 90702; 90714; 90718; 90765; 90766; 90775; 93005; 96365; 96366; 96375; 97162; 99285; G0378; G8987; G8988; J2405; J3475; J7030